=== PATIENT | male | born 1980 | race American Indian/Alaskan Native ===

== ENCOUNTER 2022-02-06 13:29 | Emergency (ER) | payer MEDICAID ==
[2022-02-06 15:01] LABS: BUN/Creatinine Ratio 12; Blood Urea Nitrogen 11 mg/dL (9-20); Calcium 9.8 mg/dL (8.4-10.2); Hemolysis Index 3
[2022-02-06 15:22] LABS: Basophils % (Auto) 0.8 % (0.0-1.8); Eosinophils # (Auto) 0.1 K/mm3 (0.0-0.4); Eosinophils % (Auto) 2.6 % (0.0-4.3); Hematocrit 43.7 % (35.5-45.6); Hemoglobin 14.8 gm/dl (11.8-15.2); Lymphocytes # (Auto) 1.9 K/mm3 (1.2-5.4); Mean Corpuscular HGB Conc 34 % (32-34); Mean Corpuscular Volume 85 fl (84-94); Monocytes # (Auto) 0.4 K/mm3 (0.0-0.8); Monocytes % (Auto) 8.9 % (0.0-7.3); Platelet Count 196 K/mm3 (140-440); Red Blood Count 5.16 M/mm3 (3.65-5.03); Red Cell Distribution Width 14.2 % (13.2-15.2)
--- NOTE | 2022-02-06 15:29 | Emergency Department Report ---
ED Psych HPI - General Chief Complaint: Psych Stated Complaint: MENTAL EVAL Time Seen by Provider: 02/06/22 13:42 Source: patient, EMS Mode of arrival: Ambulatory Limitations: No Limitations - History of Present Illness Initial Comments: PATIENT STATES HE IS HEARING VOICES AND THEY ARE TRYING TO PRACTICE WITCHCRAFT ON HIM. HISTORY OF SCHIZOPHRENIA AND BIPOLAR. HAS NOT TAKEN MEDICATION IN 1 MONTH MD Complaint: other (hallucination ) -: unknown Associated Psychiatric Symptoms: racing thoughts, auditory hallucinations, delusions History of same: Yes Quality: constant Improves With: none Worsens With: none If Self Harm: admits thoughts of - Related Data Allergies Allergy/AdvReac Type Severity Reaction Status Date / Time No Known Allergies Allergy Unverified 02/06/22 13:40 ED Review of Systems ROS: Stated complaint: MENTAL EVAL Other details as noted in HPI Constitutional: denies: chills, fever Eyes: denies: eye pain, eye discharge, vision change ENT: denies: ear pain, throat pain Respiratory: denies: cough, shortness of breath, wheezing Cardiovascular: denies: chest pain, palpitations Endocrine: no symptoms reported Gastrointestinal: denies: abdominal pain, nausea, diarrhea Genitourinary: denies: urgency, dysuria Musculoskeletal: denies: back pain, joint swelling, arthralgia Skin: denies: rash, lesions Neurological: denies: headache, weakness, paresthesias Psychiatric: denies: anxiety, depression Hematological/Lymphatic: denies: easy bleeding, easy bruising ED Past Medical Hx - Past Medical History Previous Medical History?: No Hx Hypertension: No ED Physical Exam - General Limitations: No Limitations General appearance: alert, anxious - Head Head exam: Present: atraumatic, normocephalic - Eye Eye exam: Present: normal appearance - ENT ENT exam: Present: mucous membranes moist - Neck Neck exam: Present: normal inspection - Respiratory Respiratory exam: Present: normal lung sounds bilaterally. Absent: respiratory distress - Cardiovascular Cardiovascular Exam: Present: regular rate, normal rhythm. Absent: systolic murmur, diastolic murmur, rubs, gallop - GI/Abdominal GI/Abdominal exam: Present: soft, normal bowel sounds - Rectal Rectal exam: Present: deferred - Extremities Exam Extremities exam: Present: normal inspection - Back Exam Back exam: Present: normal inspection - Neurological Exam Neurological exam: Present: alert, oriented X3 - Psychiatric Psychiatric exam: Present: normal affect, agitated, anxious - Skin Skin exam: Present: warm, dry, intact, normal color. Absent: rash ED Course Vital Signs 02/06/22 02/06/22 02/06/22 13:29 14:30 14:35 Temperature 98.1 F 98.6 F Pulse Rate 69 72 Respiratory 16 16 16 Rate Blood Pressure 151/88 154/79 [Left] O2 Sat by Pulse 99 100 100 Oximetry 02/07/22 02/07/22 13:37 15:50 Temperature 98.1 F Pulse Rate 82 Respiratory 16 16 Rate Blood Pressure 135/93 [Left] O2 Sat by Pulse 100 100 Oximetry ED Medical Decision Making - Lab Data Result diagrams: 02/06/22 14:27 02/06/22 14:27 Critical care attestation.: If time is entered above; I have spent that time in minutes in the direct care of this critically ill patient, excluding procedure time. ED Disposition Clinical Impression: Psychosis Disposition: 30 STILL A PATIENT Is pt being admited?: No Does the pt Need Aspirin: No Condition: Stable Referrals: PRIMARY CARE, [Primary Care Provider] - 3-5 Days
--- NOTE | 2022-02-07 07:08 | Event Note ---
Date: 02/07/22 Psych Obs Note S Pt is a 41yo M presenting with schizopherenia, bipolar disorder, p/w auditory hallucinations. He is calm, cooperative, He denies any complaints at this time. Chart reviewed. No overnight events reported O: VSS Pt is comfortable, well appearing, in no distress. He appears to be intermittently be responding to internal stimuli. He ambulates w/normal steady gait ; no focal neurological deficits A: 41yo M w/schizophrenia, bipolar disorder, p/w psychosis.Pt was seen/evaluated by Dr. Alves. 1013 form signed by him. P: Pt is awaiting formal evaluation by psychiatry. UDS pending
[2022-02-07 09:22] LABS: Amphetamine Screen,Urine Negative; Benzodiazepines Screen,Urine Negative; Cannabinoid Screen,Urine Negative; Cocaine Screen,Urine Negative; Methadone Screen,Urine Negative; Opiate Screen,Urine Negative
[2022-02-07 09:23] LABS: Hyaline Casts,Urine 1 /LPF; Mucus,Urine 1+ /HPF; RBC,Urine < 1.0 /HPF (0.0-6.0)
[2022-02-07 09:30] LABS: Color,Urine Yellow (Yellow)
--- NOTE | 2022-02-07 10:35 | Consultation ---
History of Present Illness - Reason for Consult Consult date: 02/07/22 Reason for consult: psychosis - History of Present Psychiatric Illness The patient was seen today. He is delusional. He appears to be responding to internal stimuli. I'm having to ask the patient the same questions several times. He says people are doing witchcraft around him. He says this has been going on about two weeks. The patient has his back turn. I ask him to turn around so I can see him. He is grinning at times. He says he takes Risperidone but has been off for about three weeks. He says he has a history of schizophrenia. 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 Previous psychiatric medications tried: risperidone Outpatient treatment: not currently PAST MEDICAL HISTORY: None reported Family Psychiatric History: None reported or documented SOCIAL HISTORY Marital Status: Living Arrangements: with family and friends Employment Status: Unemployed Access to guns/weapons: Denies Education: History of Abuse: No Legal History: Unknown REVIEW OF SYSTEMS Constitutional: Negative for weight loss ENT: Negative for stridor Respiratory: Negative for cough or hemoptysis All other systems reviewed and are negative MENTAL STATUS EXAMINATION General Appearance and Behavior: Age appropriate, good hygiene, wearing appropriate clothes, cooperative Cooperation: guarded Psychomotor Behavior: Normal Mood: depressed Affect and affective range:congruent Thought Process: circumstantial Thought Content: hallucinations, responding to internal stimuli Speech: Normal Intellectual Functioning: Average Suicidal Ideation: Denies Homicidal Ideation: Denies Hallucination: Auditory hallucinations Delusions: yes Impulse Control: Limited Insight and Judgment: limited insight and poor judgment Memory: Intact Attention:Attentive Orientation: Alert and oriented Diagnoses: (1) Schizophrenia Treatment Plan: 1013 Risperidone 0.5mg po BID Trazodone 50mg po qhs Patient should be compliant with medications and not to use drugs and not to drink alcohol. PSYCHOTHERAPY: Supportive psychotherapy provided MEDICAL: Per primary team DELIRIUM PRECAUTIONS: Please re-orient patient frequently, keep lights on during the day, and minimize benzodiazepines and opiates as these medications could worsen patient's confusion. REGISTERED OCCUPATIONAL THERAPIST: Per medical team DISPOSITION: recommend acute inpatient psychiatric hospitalization at this time. FOLLOW-UP: Will follow Thank you for the consult. Please contact with any questions and/or concerns. Case staffed with Dr. Jens Medications and Allergies Allergies Allergy/AdvReac Type Severity Reaction Status Date / Time No Known Allergies Allergy Unverified 02/06/22 13:40 Mental Status Exam - Vital signs Last Vital Signs Temp 98.6 F 02/06/22 14:35 Pulse 72 02/06/22 14:35 Resp 16 02/06/22 14:35 BP 154/79 02/06/22 14:35 Pulse Ox 100 02/06/22 14:35 Results Result Diagrams: 02/06/22 14:27 02/06/22 14:27 Abnormal lab results 02/06/22 02/06/22 02/06/22 Range/Units 14:27 14:27 14:27 RBC 5.16 H (3.65-5.03) M/mm3 Lymph % (Auto) 42.0 H (13.4-35.0) % [place] % (Auto) 8.9 H (0.0-7.3) % Salicylates < 0.3 L (2.8-20.0) mg/dL Acetaminophen 5.0 L (10.0-30.0) ug/mL All other labs normal.
[2022-02-07] MEDS: risperiDONE 0.25 MG TAB PO SCH ×2 (15:22→22:44)
[2022-02-07] MEDS ORDERED: traZODone 50 MG TAB PO SCH (22:00)
[2022-02-07] MEDS ORDERED: ACETAMINOPHEN 500 MG TAB PO ONE (22:34)
--- NOTE | 2022-02-08 07:30 | Event Note ---
Date: 02/08/22 S: No events reported overnight O: Vital Signs - 8 hr 02/08/22 04:49 Temperature 98.5 F Pulse Rate 78 Respiratory 18 Rate Blood Pressure 153/90 [Right] O2 Sat by Pulse 100 Oximetry E: Schizophrenia/COVID-positive P: Cleared by psych. Being discharged
--- NOTE | 2022-02-08 08:58 | Progress Note ---
Subjective - Reason for Consult Consult date: 02/08/22 Reason for consult: psychosis - Chief Complaint Chief complaint: The patient was seen today. He presents much better today. The patient is smiling and is conversational. He says he feels better and slept good last night. The patient did says he felt a little woozy. He is positive for COVID. He denies SI/HI or hallucinations. The patient says "I was hallucinating when I came in, but not doing that now." He says his plans are to get back to work and get his own place. 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 No longer recommend acute psychiatric inpatient treatment. The patient can now be managed on an outpatient basis. Please see plan below. REVIEW OF SYSTEMS Constitutional: Negative for weight loss ENT: Negative for stridor Respiratory: Negative for cough or hemoptysis All other systems reviewed and are negative MENTAL STATUS EXAMINATION General Appearance and Behavior: Age appropriate, good hygiene, wearing appropriate clothes, cooperative Cooperation: cooperative Psychomotor Behavior: Normal Mood: better Affect and affective range:congruent Thought Process: goal directed Thought Content: optimism Speech: Normal tone and pace Suicidal Ideation: Denies Homicidal Ideation: Denies Hallucination: Denies Delusions: None elicited Impulse Control: Limited Insight and Judgment: limited insight and poor judgment Memory: Intact Attention: Attentive Orientation: Alert and oriented Diagnoses: (1) Schizophrenia Treatment Plan: d/c 1013 Risperidone 0.5mg po BID Trazodone 50mg po qhs Patient should be compliant with medications and not to use drugs and not to drink alcohol. PSYCHOTHERAPY: Supportive psychotherapy provided MEDICAL: Per primary team DELIRIUM PRECAUTIONS: Please re-orient patient frequently, keep lights on during the day, and minimize benzodiazepines and opiates as these medications could worsen patient's confusion. LAMINATING MACHINE FEEDER: Per medical team DISPOSITION: Do not recommend acute inpatient psychiatric hospitalization at this time. The patient understands that if SI/HI or and fear of endangerment arise he is to seek immediate assistance. The music mixer to further discuss safety plan and give the patient all necessary resources The patient to follow up with outpatient psych in 7 to 14 days upon discharge FOLLOW-UP: Will sign off Thank you for the consult. Please contact with any questions and/or concerns. Case staffed with Dr. Colindres Mental Status Exam - Vital signs Last Vital Signs Temp 98.5 F 02/08/22 04:49 Pulse 78 02/08/22 04:49 Resp 18 02/08/22 04:49 BP 153/90 02/08/22 04:49 Pulse Ox 100 02/08/22 04:49
[2022-02-08 10:25] VITALS: BP 151/91
== END 2022-02-08 12:10 | disposition home or self-care (01) ==
LOC: ED 13:29 → EEVIPCON 13:29 → ED 02-08 12:10
DX: U07.1 COVID-19 (principal); F29 Unspecified psychosis not due to a substance or known physiological condition; Z79.899 Other long term (current) drug therapy
CPT/HCPCS: 36415; 80048; 80320; 85025; 99284; G0480

== ENCOUNTER 2022-02-10 14:41 | Emergency (ER) | payer MEDICAID ==
--- NOTE | 2022-02-10 23:17 | Emergency Department Report ---
HPI - General Chief Complaint: Psych PUI?: No Time Seen by Provider: 02/10/22 20:23 - HPI HPI: 41-year-old male with extensive psychiatric history, currently undomiciled per his report, presents for evaluation of suicidal ideation. However when asked patient states "I am here because I did not get my meds". When asked again concerning SI patient states that" when I think about my mother I get depressed." He does not initially volunteer being suicidal but when asked for the patient states "yeah I am suicidal." When asked concerning whether or not he has a plan, the patient will not answer stating "I just want to go to sleep." Pain 0 out of 10. ED Past Medical Hx - Past Medical History Hx Hypertension: No - Medications Home Medications: Home Medications Medication Instructions Recorded Confirmed Last Taken Type risperiDONE [RisperDAL] 0.5 mg PO BID #60 02/08/22 Unknown Rx traZODone [Desyrel] 50 mg PO QHS #30 tab 02/08/22 Unknown Rx ED Review of Systems ROS: Stated complaint: psych Other details as noted in HPI Comment: All other systems reviewed and negative Physical Exam - Physical Exam Vital Signs: Vital Signs 02/10/22 02/10/22 18:35 20:24 Temperature 98.1 F 97.3 F L Pulse Rate 79 54 L Respiratory 16 16 Rate Blood Pressure 129/75 [Left] Blood Pressure 127/89 [Right] O2 Sat by Pulse 97 100 Oximetry General: Gen: pt is well appearing, no acute distress HEENT: Normocephalic atraumatic pupils equally round and reactive to light extraocular muscles intact sclera anicteric Neck: Full range of motion, no midline spinal tenderness palpation, no JVD, no carotid bruits, no nuchal rigidity CVS: S1-S2 regular rate and rhythm with no gallops rubs or murmurs, chest wall nontender Pulmonary: Clear to auscultation bilaterally, no wheezes rales or rhonchi Abdomen: Soft nondistended nontender no guarding or rebound tenderness, no palpable deformities or step-offs, normal active bowel sounds, no hepatosplenomegaly, no pulsatile masses : Deferred Extremities: No cyanosis no clubbing no edema, intact distal peripheral pulses, Integumentary: Skin normal, no petechia no purpura no abscess no lacerations no evidence of trauma no evidence of infection Neuro: Patient is awake alert and oriented to person place time situation, mentating well, cranial nerves II through XII intact, no focal neurodeficits, sensation grossly tact Psych: Flat affect, uncooperative, poor eye contact with this provider ED Course Vital Signs 02/10/22 02/10/22 18:35 20:24 Temperature 98.1 F 97.3 F L Pulse Rate 79 54 L Respiratory 16 16 Rate Blood Pressure 129/75 [Left] Blood Pressure 127/89 [Right] O2 Sat by Pulse 97 100 Oximetry ED Medical Decision Making - Medical Decision Making 41-year-old male with extensive psychiatric history presents with complaints of depression and suicidal ideation. Vital stable. Patient was ordered for serum labs several hours ago but at the timing of the dictation of this note, the labs have not been drawn and the results have not been resulted. Therefore at this time patient cannot be medically cleared. 1013 form signed. Patient to remain in psychiatric holding area until he has both been medically cleared as well as undergone evaluation by mental health in the morning. Due to change in provider shift time at midnight, serum labs will be followed up by , overnight ER attending physician. The pt's case has been reviewed with him prior to the termination of this provider's shift time. Critical care attestation.: If time is entered above; I have spent that time in minutes in the direct care of this critically ill patient, excluding procedure time. ED Disposition Clinical Impression: Homelessness, Suicidal ideation Disposition: 30 STILL A PATIENT Is pt being admited?: No Does the pt Need Aspirin: No Condition: Stable Referrals: PRIMARY CARE, [Primary Care Provider] - 3-5 Days
[2022-02-11 00:02] LABS: Hemoglobin 14.5 gm/dl (11.8-15.2); Mean Corpuscular HGB Conc 34 % (32-34); Mean Corpuscular Volume 85 fl (84-94); Platelet Count 144 K/mm3 (140-440); Red Blood Count 5.07 M/mm3 (3.65-5.03); Red Cell Distribution Width 14.3 % (13.2-15.2)
[2022-02-11 00:12] LABS: Alanine Aminotransferase 9 units/L (7-56); Albumin 4.4 g/dL (3.9-5); BUN/Creatinine Ratio 21; Blood Urea Nitrogen 17 mg/dL (9-20); Calcium 8.8 mg/dL (8.4-10.2); Hemolysis Index 45
[2022-02-11 02:27] LABS: Basophils % (Manual) 0 % (0.0-1.8); Platelet Estimate Consistent w Auto; RBC Morphology Normal; Total Cells Counted 100
[2022-02-11 09:05] LABS: WBC,Urine < 1.0 /HPF (0.0-6.0)
[2022-02-11 09:12] LABS: Amphetamine Screen,Urine Negative; Benzodiazepines Screen,Urine Negative; Cannabinoid Screen,Urine Negative; Cocaine Screen,Urine Negative; Methadone Screen,Urine Negative; Opiate Screen,Urine Negative
[2022-02-11 10:06] LABS: Color,Urine Straw (Yellow); RBC,Urine < 1.0 /HPF (0.0-6.0)
[2022-02-11 10:15] VITALS: BP 164/62
--- NOTE | 2022-02-11 10:18 | Progress Note ---
Subjective - Reason for Consult Consult date: 02/11/22 Reason for consult: need meds - Chief Complaint Chief complaint: HPI: 41-year-old male with extensive psychiatric history, currently undomiciled per his report, presents for evaluation of suicidal ideation. However when asked patient states "I am here because I did not get my meds". When asked again concerning SI patient states that" when I think about my mother I get depressed." He does not initially volunteer being suicidal but when asked for the patient states "yeah I am suicidal." When asked concerning whether or not he has a plan, the patient will not answer stating "I just want to go to sleep." Pain 0 out of 10. The patient was seen today. He was treated in the ER and cleared by psych a couple of days ago. The patient's symptoms are vague. When asked what brought him back to the hospital, the patient says "my schizophrenia." He doesn't volunteer any other information concerning his symptoms until asked. I ask him what about his schizophrenia, he says "people are doing witchcraft." The patient then says "I got kicked out where I was living for having differences with my roommate." The patient never says he's suicidal until asked. He initially says "no, not really." He then says "yes, a little." The patient denies having a plan. He denies hallucinations of any kind. The patient appears to have returned to the ER for secondary gains. The patient can be managed on an outpatient basis. REVIEW OF SYSTEMS Constitutional: Negative for weight loss ENT: Negative for stridor Respiratory: Negative for cough or hemoptysis All other systems reviewed and are negative MENTAL STATUS EXAMINATION General Appearance and Behavior: Age appropriate, good hygiene, wearing appropriate clothes, cooperative Cooperation: cooperative Psychomotor Behavior: Normal Mood: better Affect and affective range:congruent Thought Process: goal directed Thought Content: optimism Speech: Normal tone and pace Suicidal Ideation: Denies Homicidal Ideation: Denies Hallucination: Denies Delusions: None elicited Impulse Control: Limited Insight and Judgment: limited insight and poor judgment Memory: Intact Attention: Attentive Orientation: Alert and oriented Diagnoses: (1) Schizophrenia Treatment Plan: d/c 1013 Continue meds previously prescribed PSYCHOTHERAPY: Supportive psychotherapy provided MEDICAL: Per primary team DELIRIUM PRECAUTIONS: Please re-orient patient frequently, keep lights on during the day, and minimize benzodiazepines and opiates as these medications could worsen patient's confusion. PHARMACOEPIDEMIOLOGIST: Per medical team DISPOSITION: Do not recommend acute inpatient psychiatric hospitalization at this time. The patient understands that if SI/HI or and fear of endangerment arise he is to seek immediate assistance. The medical administrative assistant to further discuss safety plan and give the patient all necessary resources The patient to follow up with outpatient psych in 7 to 14 days upon discharge FOLLOW-UP: Will sign off Thank you for the consult. Please contact with any questions and/or concerns. Case staffed with Dr. Colindres Mental Status Exam - Vital signs Last Vital Signs Temp 98.7 F 02/11/22 10:14 Pulse 52 L 02/11/22 10:14 Resp 16 02/10/22 20:24 BP 164/62 02/11/22 10:14 Pulse Ox 100 02/10/22 20:24
== END 2022-02-11 11:55 | disposition still patient (30) ==
LOC: EEVIPCON 14:41 → ED 14:41
DX: R45.851 Suicidal ideations (principal); Z59.00 Homelessness unspecified; Z79.899 Other long term (current) drug therapy
CPT/HCPCS: 36415; 80053; 80307; 80320; 81001; 85007; 85025; 99283; G0480

== ENCOUNTER 2022-02-12 15:34 | Emergency (ER) | payer MEDICAID ==
--- NOTE | 2022-02-12 19:38 | Emergency Department Report ---
ED Psych HPI - General Chief Complaint: Psych Stated Complaint: SUICIDAL Time Seen by Provider: 02/12/22 17:04 Source: patient Mode of arrival: Ambulatory - History of Present Illness Initial Comments: Patient is a 41-year-old male presenting to ED with complaint of suicidal ideation. States his SI was triggered by thinking of his mother. - Related Data Previous Rx's Medication Instructions Recorded Last Taken Type risperiDONE [RisperDAL] 0.5 mg PO BID #60 02/08/22 Unknown Rx traZODone [Desyrel] 50 mg PO QHS #30 tab 02/08/22 Unknown Rx Allergies Allergy/AdvReac Type Severity Reaction Status Date / Time aspirin Allergy Shortness Verified 02/12/22 16:22 of Breath ED Review of Systems ROS: Stated complaint: SUICIDAL Other details as noted in HPI Constitutional: denies: chills, fever Respiratory: denies: cough, shortness of breath, wheezing Cardiovascular: denies: chest pain, palpitations Gastrointestinal: denies: abdominal pain, nausea, diarrhea Genitourinary: denies: urgency, dysuria Musculoskeletal: denies: back pain, joint swelling, arthralgia Skin: denies: rash, lesions Neurological: denies: headache, weakness, paresthesias Psychiatric: suicidal thoughts. denies: anxiety, depression ED Past Medical Hx - Past Medical History Hx Hypertension: No Additional medical history: schizophrenia - Surgical History Past Surgical History?: No - Medications Home Medications: Home Medications Medication Instructions Recorded Confirmed Last Taken Type risperiDONE [RisperDAL] 0.5 mg PO BID #60 02/08/22 Unknown Rx traZODone [Desyrel] 50 mg PO QHS #30 tab 02/08/22 Unknown Rx ED Physical Exam - General Limitations: No Limitations General appearance: alert, in no apparent distress - Head Head exam: Present: atraumatic, normocephalic - Neck Neck exam: Present: normal inspection - Respiratory Respiratory exam: Present: normal lung sounds bilaterally. Absent: respiratory distress - Cardiovascular Cardiovascular Exam: Present: regular rate, normal rhythm, normal heart sounds - GI/Abdominal GI/Abdominal exam: Present: soft. Absent: distended, tenderness - Rectal Rectal exam: Present: deferred - Neurological Exam Neurological exam: Present: alert, oriented X3 - Psychiatric Psychiatric exam: Present: normal affect, suicidal ideation - Skin Skin exam: Present: warm, dry, intact, normal color ED Course Vital Signs 02/12/22 02/12/22 16:19 17:10 Temperature 98.4 F Pulse Rate 62 Respiratory 18 Rate Blood Pressure 108/79 [Left] O2 Sat by Pulse 99 99 Oximetry Critical care attestation.: If time is entered above; I have spent that time in minutes in the direct care of this critically ill patient, excluding procedure time. ED Disposition Condition: Stable Referrals: PRIMARY CARE, [Primary Care Provider] - 3-5 Days
[2022-02-12 19:40] LABS: Hematocrit 41.4 % (35.5-45.6); Mean Corpuscular HGB Conc 34 % (32-34); Mean Corpuscular Volume 84 fl (84-94); Platelet Count 172 K/mm3 (140-440); Red Blood Count 4.94 M/mm3 (3.65-5.03); Red Cell Distribution Width 14.1 % (13.2-15.2)
[2022-02-12 19:55] LABS: Alanine Aminotransferase 9 units/L (7-56); Albumin 4.5 g/dL (3.9-5); BUN/Creatinine Ratio 14; Blood Urea Nitrogen 11 mg/dL (9-20); Calcium 9.2 mg/dL (8.4-10.2); Hemolysis Index 17
[2022-02-12 20:50] LABS: Platelet Estimate Consistent w Auto; Total Cells Counted 100
--- NOTE | 2022-02-13 10:49 | Progress Note ---
Subjective - Reason for Consult Consult date: 02/13/22 Reason for consult: SI - Chief Complaint Chief complaint: The patient was seen today. He was seen two other times and cleared. The patient makes poor eye contact and doesn't talk much. He says he can't stop thinking of his mother. The patient says he is suicidal and "no longer wants to live any more." He also endorses hearing hallucination that he can't describe. REVIEW OF SYSTEMS Constitutional: Negative for weight loss ENT: Negative for stridor Respiratory: Negative for cough or hemoptysis All other systems reviewed and are negative MENTAL STATUS EXAMINATION General Appearance and Behavior: Age appropriate, good hygiene, wearing appropriate clothes, cooperative Cooperation: cooperative Psychomotor Behavior: Normal Mood: better Affect and affective range:congruent Thought Process: goal directed Thought Content: optimism Speech: Normal tone and pace Suicidal Ideation: Denies Homicidal Ideation: Denies Hallucination: Denies Delusions: None elicited Impulse Control: Limited Insight and Judgment: limited insight and poor judgment Memory: Intact Attention: Attentive Orientation: Alert and oriented Diagnoses: (1) Schizophrenia Treatment Plan: Risperidon 0.5mg po BID Trazodone 50mg po qhs PSYCHOTHERAPY: Supportive psychotherapy provided MEDICAL: Per primary team DELIRIUM PRECAUTIONS: Please re-orient patient frequently, keep lights on during the day, and minimize benzodiazepines and opiates as these medications could worsen patient's confusion. IT PROJECT MANAGER: Per medical team DISPOSITION: recommend acute inpatient psychiatric hospitalization at this time. FOLLOW-UP: Will follow Thank you for the consult. Please contact with any questions and/or concerns. Case staffed with Dr. Colindres Mental Status Exam - Vital signs Last Vital Signs Temp 97.7 F 02/13/22 08:31 Pulse 82 02/13/22 08:31 Resp 18 02/13/22 08:31 BP 106/74 02/13/22 08:31 Pulse Ox 100 02/13/22 08:32
[2022-02-13] MEDS ORDERED: NON-FORMULARY EACH (Risperidone [Risperdal] 0.5 MG Tablet) PO SCH (11:00)
[2022-02-13 12:21] LABS: Amorphous Crystals,Urine Few; Amphetamine Screen,Urine Negative; Benzodiazepines Screen,Urine Negative; Cocaine Screen,Urine Negative; Methadone Screen,Urine Negative; Opiate Screen,Urine Negative
[2022-02-13 12:24] LABS: Color,Urine Straw (Yellow)
[2022-02-13 13:22] LABS: Cannabinoid Screen,Urine Positive
[2022-02-13] MEDS: risperiDONE 0.25 MG TAB PO SCH (22:54)
[2022-02-13] MEDS: traZODone 50 MG TAB PO SCH (22:56)
--- NOTE | 2022-02-14 11:11 | Progress Note ---
Subjective - Reason for Consult Consult date: 02/14/22 Reason for consult: suicidal ideation - Chief Complaint Chief complaint: The patient was seen today. He continues to endorse suicidal ideation however he has no plan. REVIEW OF SYSTEMS Constitutional: Negative for weight loss ENT: Negative for stridor Respiratory: Negative for cough or hemoptysis All other systems reviewed and are negative MENTAL STATUS EXAMINATION General Appearance and Behavior: Age appropriate, good hygiene, wearing appropriate clothes, cooperative Cooperation: cooperative Psychomotor Behavior: Normal Mood: Depressed Affect and affective range:congruent to states affect Thought Process: goal directed Thought Content: suicidal Speech: Normal tone and pace Suicidal Ideation: Yes Homicidal Ideation: Denies Hallucination: Denies Delusions: None elicited Impulse Control: Limited Insight and Judgment: limited insight and poor judgment Memory: Intact Attention: Attentive Orientation: Alert and oriented Diagnoses: (1) Schizophrenia Treatment Plan: 1013 Risperidon 0.5mg po BID Trazodone 50mg po qhs PSYCHOTHERAPY: Supportive psychotherapy provided MEDICAL: Per primary team DELIRIUM PRECAUTIONS: Please re-orient patient frequently, keep lights on during the day, and minimize benzodiazepines and opiates as these medications could worsen patient's confusion. CAKE INSPECTOR: Per medical team DISPOSITION: recommend acute inpatient psychiatric hospitalization at this time. FOLLOW-UP: Will follow Thank you for the consult. Please contact with any questions and/or concerns. Case staffed with Dr. Colindres Mental Status Exam - Vital signs Last Vital Signs Temp 97.7 F 02/13/22 08:31 Pulse 82 02/13/22 08:31 Resp 18 02/13/22 08:31 BP 106/74 02/13/22 08:31 Pulse Ox 100 02/13/22 08:32
[2022-02-14] MEDS: risperiDONE 0.25 MG TAB PO SCH ×2 (11:33→21:40)
--- NOTE | 2022-02-14 14:04 | Event Note ---
Date: 02/14/22 Pt seen today with no new symptoms except suicidal ideation. He was also round upon by the psychiatry team and continue to suggest inpatient treatment. Pt is to continue current medication. No other modifying or associated factors reported.
[2022-02-14] MEDS: traZODone 50 MG TAB PO SCH (21:40)
[2022-02-15 09:16] VITALS: BP 130/74
--- NOTE | 2022-02-15 09:46 | Progress Note ---
Subjective - Reason for Consult Consult date: 02/15/22 Reason for consult: suicidal ideation - Chief Complaint Chief complaint: The patient was seen today. He reports feeling better. The patient denies any current suicidal/homicidal ideation and denies hallucinations. REVIEW OF SYSTEMS Constitutional: Negative for weight loss ENT: Negative for stridor Respiratory: Negative for cough or hemoptysis All other systems reviewed and are negative MENTAL STATUS EXAMINATION General Appearance and Behavior: Age appropriate, good hygiene, wearing appropriate clothes, cooperative Cooperation: cooperative Psychomotor Behavior: Normal Mood: calm Affect and affective range:congruent to states affect Thought Process: goal directed Thought Content: reality oriented Speech: Normal tone and pace Suicidal Ideation: Denies Homicidal Ideation: Denies Hallucination: Denies Delusions: None elicited Impulse Control: Limited Insight and Judgment: limited insight and judgment Memory: Intact Attention: Attentive Orientation: Alert and oriented Diagnoses: (1) Schizophrenia Treatment Plan: DC 1013 Risperidon 0.5mg po BID Trazodone 50mg po qhs PSYCHOTHERAPY: Supportive psychotherapy provided MEDICAL: Per primary team DELIRIUM PRECAUTIONS: Please re-orient patient frequently, keep lights on during the day, and minimize benzodiazepines and opiates as these medications could worsen patient's confusion. ELECTRONICS SPECIALIST: Per medical team DISPOSITION: Do not recommend acute inpatient psychiatric hospitalization at this time. Landfill Grader will provide patient with psychiatric outpatient resources. FOLLOW-UP: Will sign off Thank you for the consult. Please contact with any questions and/or concerns. Case staffed with Dr. Colindres Mental Status Exam - Vital signs Last Vital Signs Temp 97.7 F 02/15/22 09:13 Pulse 69 02/15/22 09:13 Resp 18 02/15/22 09:13 BP 130/74 02/15/22 09:13 Pulse Ox 100 02/15/22 09:13
[2022-02-15] MEDS: risperiDONE 0.25 MG TAB PO SCH (11:31)
== END 2022-02-15 14:01 | disposition home or self-care (01) ==
LOC: ED 15:34 → EEVIPCON 15:34 → ED 02-15 14:01
DX: U07.1 COVID-19 (principal); R45.851 Suicidal ideations; Z88.6 Allergy status to analgesic agent; Z79.899 Other long term (current) drug therapy
CPT/HCPCS: 36415; 80053; 80307; 80320; 81001; 84443; 85007; 85025; 99284; G0480; U0003

== ENCOUNTER 2022-02-16 03:12 | Emergency (ER) | payer MEDICAID ==
[2022-02-16 05:12] LABS: Hematocrit 44.8 % (35.5-45.6); Hemoglobin 15.1 gm/dl (11.8-15.2); Mean Corpuscular HGB Conc 34 % (32-34); Mean Corpuscular Volume 84 fl (84-94); Platelet Count 215 K/mm3 (140-440); Red Blood Count 5.34 M/mm3 (3.65-5.03)
[2022-02-16 05:24] LABS: BUN/Creatinine Ratio 14; Blood Urea Nitrogen 13 mg/dL (9-20); Calcium 9.8 mg/dL (8.4-10.2); Hemolysis Index 25
[2022-02-16 06:20] LABS: Anisocytosis 1+; Basophils % (Manual) 0 % (0.0-1.8); Platelet Estimate Consistent w Auto; Total Cells Counted 100
[2022-02-16 08:58] LABS: Amphetamine Screen,Urine Negative; Benzodiazepines Screen,Urine Negative; Cocaine Screen,Urine Negative; Methadone Screen,Urine Negative; Opiate Screen,Urine Negative
[2022-02-16 09:08] LABS: Color,Urine Yellow (Yellow)
[2022-02-16 09:17] LABS: Cannabinoid Screen,Urine Positive
[2022-02-16 10:11] LABS: Hyaline Casts,Urine 1 /LPF; Mucus,Urine FEW /HPF
[2022-02-16 15:07] VITALS: BP 144/76
== END 2022-02-16 15:09 | disposition left against medical advice (07) ==
LOC: ED 03:12
DX: Z13.30 Encounter for screening examination for mental health and behavioral disorders, unspecified (principal); Z53.21 Procedure and treatment not carried out due to patient leaving prior to being seen by health care provider; Z79.899 Other long term (current) drug therapy
CPT/HCPCS: 36415; 80048; 80307; 80320; 81001; 85007; 85025; G0480

== ENCOUNTER 2022-02-17 18:12 | Emergency (ER) | payer MEDICAID ==
--- NOTE | 2022-02-18 15:54 | Emergency Department Report ---
HPI - General Chief Complaint: Psych - HPI HPI: Room 3 Patient is a 41-year-old male present with chief complaint of hallucinations. Patient states she has a history of schizophrenia and has not had any of his psychiatric medications for approximately 1 week. Patient admits to auditory visual hallucinations. Patient states the voices are saying "a lot of negative things, then good again, then negative again." Patient states his visual hallucinations include seeing "horns and evil spirits.". Patient denies suicidal homicidal ideation ED Past Medical Hx - Past Medical History Hx Psychiatric Treatment: Yes (SCHIZOPHRENIC (DX AGE 24)) Additional medical history: schizophrenia - Surgical History Additional Surgical History: Right lower extremity repair - Family History Family history: no significant - Social History Smoking Status: Current Every Day Smoker (1/7 pack/day) Substance Use Type: None (Denies illicit drug use), Alcohol (Occasional) - Medications Home Medications: Home Medications Medication Instructions Recorded Confirmed Last Taken Type risperiDONE [RisperDAL] 0.5 mg PO BID #60 02/08/22 Unknown Rx traZODone [Desyrel] 50 mg PO QHS #30 tab 02/08/22 Unknown Rx risperiDONE [RisperDAL] 0.5 mg PO BID 30 Days #60 02/15/22 Unknown Rx traZODone [Desyrel] 50 mg PO QHS 30 Days #30 tab 02/15/22 Unknown Rx risperiDONE [RisperDAL] 0.5 mg PO BID 30 Days #60 02/20/22 Unknown Rx traZODone [Desyrel] 50 mg PO QHS 30 Days #30 tab 02/20/22 Unknown Rx ED Review of Systems ROS: Stated complaint: SI Other details as noted in HPI Constitutional: no symptoms reported Eyes: denies: eye pain ENT: denies: throat pain Respiratory: no symptoms reported Cardiovascular: denies: chest pain Endocrine: no symptoms reported Gastrointestinal: denies: abdominal pain Genitourinary: denies: dysuria Musculoskeletal: denies: back pain Neurological: denies: headache Psychiatric: auditory hallucinations, visual hallucinations. denies: homicidal thoughts, suicidal thoughts Physical Exam - Physical Exam Vital Signs: Vital Signs 02/17/22 02/18/22 19:14 08:22 Temperature 98.4 F 97.8 F Pulse Rate 86 68 Respiratory 15 16 Rate Blood Pressure 142/63 122/84 [Right] O2 Sat by Pulse 96 100 Oximetry Physical Exam: GENERAL: The patient is well-developed well-nourished male lying on stretcher not appearing to be in acute distress. [] HEENT: Normocephalic. Atraumatic. Extraocular motions are intact. Patient has moist mucous membranes. NECK: Supple. Trachea midline CHEST/LUNGS: Clear to auscultation. There is no respiratory distress noted. HEART/CARDIOVASCULAR: Regular. There is no tachycardia. There is no gallop rub or murmur. ABDOMEN: Abdomen is soft, nontender. Patient has normal bowel sounds. There is no abdominal distention. SKIN: There is no rash. There is no edema. There is no diaphoresis. NEURO: The patient is awake, alert, and oriented. The patient is cooperative. The patient has no focal neurologic deficits. The patient has normal speech. GCS 15 MUSCULOSKELETAL: There is no evidence of acute injury. ED Course Vital Signs 02/17/22 02/18/22 19:14 08:22 Temperature 98.4 F 97.8 F Pulse Rate 86 68 Respiratory 15 16 Rate Blood Pressure 142/63 122/84 [Right] O2 Sat by Pulse 96 100 Oximetry ED Medical Decision Making - Lab Data Result diagrams: 02/18/22 16:28 02/18/22 16:28 Laboratory Tests 02/18/22 02/18/22 02/18/22 16:28 16:28 16:28 WBC 5.0 RBC 5.79 H Hgb 15.9 H Hct 49.4 H MCV 85 MCH 27 L MCHC 32 RDW 14.1 Plt Count 252 Lymph % (Auto) 40.7 H [place] % (Auto) 9.4 H Eos % (Auto) 2.6 Baso % (Auto) 0.7 Lymph # (Auto) 2.0 [place] # (Auto) 0.5 Eos # (Auto) 0.1 Baso # (Auto) 0.0 Seg Neutrophils % 46.6 Seg Neutrophils # 2.3 Sodium 137 Potassium 4.5 Chloride 97.5 L Carbon Dioxide 24 Anion Gap 20 BUN 15 Creatinine 1.0 Estimated GFR > 60 BUN/Creatinine Ratio 15 Glucose 59 L Calcium 10.5 H Total Bilirubin 0.90 AST 14 ALT 11 Alkaline Phosphatase 73 Total Protein 7.4 Albumin 5.3 H Albumin/Globulin Ratio 2.5 Salicylates < 0.3 L Acetaminophen Plasma/Serum Alcohol 02/18/22 02/18/22 16:28 16:28 WBC RBC Hgb Hct MCV MCH MCHC RDW Plt Count Lymph % (Auto) [place] % (Auto) Eos % (Auto) Baso % (Auto) Lymph # (Auto) [place] # (Auto) Eos # (Auto) Baso # (Auto) Seg Neutrophils % Seg Neutrophils # Sodium Potassium Chloride Carbon Dioxide Anion Gap BUN Creatinine Estimated GFR BUN/Creatinine Ratio Glucose Calcium Total Bilirubin AST ALT Alkaline Phosphatase Total Protein Albumin Albumin/Globulin Ratio Salicylates Acetaminophen 5.0 L Plasma/Serum Alcohol < 0.01 - Differential Diagnosis Schizophrenia Critical care attestation.: If time is entered above; I have spent that time in minutes in the direct care of this critically ill patient, excluding procedure time. ED Disposition Clinical Impression: Schizophrenia Disposition: 01 HOME / SELF CARE / HOMELESS Is pt being admited?: No Does the pt Need Aspirin: No Condition: Stable Instructions: Schizophrenia Additional Instructions: Take the medication as prescribed. Follow-up with your doctor or doctor/clinic provided. Return if symptoms worsen as indicated by your discharge instructions. Professional and Agency Contacts To help [facility] (05/01) [place] Crisis Line: Suicide Prevention Line: Crisis Text Line: Text ``START to 757303 Emergency: 911 Outpatient COMMUNITY Behavioral Health Resources: [place]: [facility] [address], [place] [address] [facility] [address] [place] [address] Thursday thru Thursday - 8am - 5pm Call to schedule an assessment for mental health and substance abuse programs [place]: [facility] Address: [address] [place] [address] Thursday thru Thursday- 7am-2pm [facility] Address: [address] [place] [address] Thursday thrthursday: 8:30AM-5PM OUTPATIENT MENTAL HEALTH RESOURCES [facility], [facility] Chayo Cam MD: [address] [place] [address], [address] [place] [address] [place] [address] [facility]: [facility] [address] [place] [address] [place] [address] [phone] [facility]: [facility] Healthcare: [address] [facility] [place] [address] [facility] [address] [facility]: Ridge Jay MD: [address] [facility] [address] [facility] [address] [facility]: [address] [place], [place] [id number] [phone] [place] CRISIS AND ACCESS LINE: Prescriptions: traZODone [Desyrel] 50 mg PO QHS 30 Days #30 tab risperiDONE [RisperDAL] 0.5 mg PO BID 30 Days #60 Referrals: [facility] [Provider Group] - 3-5 Days PRIMARY CARE, [Primary Care Provider] - 3-5 Days Time of Disposition: 23:45 (Awaiting eval)
[2022-02-18] MEDS ORDERED: NON-FORMULARY EACH (Risperidone [Risperdal] 0.5 MG Tablet) PO SCH (16:00)
[2022-02-18 17:23] LABS: Basophils % (Auto) 0.7 % (0.0-1.8); Eosinophils # (Auto) 0.1 K/mm3 (0.0-0.4); Eosinophils % (Auto) 2.6 % (0.0-4.3); Hematocrit 49.4 % (35.5-45.6); Hemoglobin 15.9 gm/dl (11.8-15.2); Lymphocytes % (Auto) 40.7 % (13.4-35.0); Mean Corpuscular HGB Conc 32 % (32-34); Mean Corpuscular Volume 85 fl (84-94); Monocytes # (Auto) 0.5 K/mm3 (0.0-0.8); Monocytes % (Auto) 9.4 % (0.0-7.3); Platelet Count 252 K/mm3 (140-440); Red Blood Count 5.79 M/mm3 (3.65-5.03); Red Cell Distribution Width 14.1 % (13.2-15.2)
[2022-02-18 17:36] LABS: Alanine Aminotransferase 11 units/L (7-56); Albumin 5.3 g/dL (3.9-5); BUN/Creatinine Ratio 15; Blood Urea Nitrogen 15 mg/dL (9-20); Calcium 10.5 mg/dL (8.4-10.2); Hemolysis Index 32
[2022-02-18] MEDS ORDERED: traZODone 50 MG TAB PO SCH (22:00)
--- NOTE | 2022-02-19 11:52 | Consultation ---
History of Present Illness - Reason for Consult Consult date: 02/19/22 Reason for consult: mental health evaluation - History of Present Psychiatric Illness ED Note: Patient is a 41-year-old male present with chief complaint of hallucinations. Patient states she has a history of schizophrenia and has not had any of his psychiatric medications for approximately 1 week. Patient admits to auditory visual hallucinations. Patient states the voices are saying "a lot of negative things, then good again, then negative again." Patient states his visual hallucinations include seeing "horns and evil spirits.". Patient denies suicidal homicidal ideation. The patient is a 42 year old male with history of schizophrenia who presents to the ED with hallucinations. The patient was seen today. he is calm, alert and oriented x3. He reports ongoing depression and auditory hallucinations for the past 2 weeks. He states he is noncompliant with psychotropic meds. He endorses suicidal ideation without a plan " I don't know." and auditory hallucinations " why did she have to leave." He reports feeling guilty over the of his mother. PAST PSYCHIATRIC HISTORY: Diagnoses: schizophrenia Suicide attempts or Self-harm behavior: Yes Prior psychiatric hospitalizations: Yes Substance Abuse history: Alcohol Previous psychiatric medications tried: Risperidone Outpatient treatment: No PAST MEDICAL HISTORY: Family Psychiatric History: None reported SOCIAL HISTORY Marital Status: Living Arrangements: Lives in a person half-way Employment Status:Unemployed Access to guns/weapons: Denies Education:some 12th grade History of Abuse: Denies Legal History: Unknown REVIEW OF SYSTEMS Constitutional: Negative for weight loss ENT: Negative for stridor Respiratory: Negative for cough or hemoptysis All other systems reviewed and are negative MENTAL STATUS General Appearance and Behavior: age appropriate, good eye contact, cooperative, Cooperation: Cooperative Psychomotor Behavior: within normal limits Mood: Depressed Affect and affective range: Congruent with stated mood Thought Process: goal directed Thought Content: suicidal/hallucinations Speech: Normal volume and Regular rate and rhythm Suicidal Ideation: Yes Homicidal Ideation: Denies HI Hallucinations: Auditory Impulse Control: intact Insight and Judgment: Limited Memory: Normal Attention: attentive Orientation: alert and oriented x3 Assessment Treatment Plan 1013 Continue home medications Risperidone 0.5mg po BID Trazodone 50mg po QHS The patient is to get first dose of meds prior to leaving. Benefits and possible SE were explained to patient. She verbalizes understanding. Risks, benefits and alternatives of medications discussed with the patient, questions answered and consent obtained from patient. PSYCHOTHERAPY: Supportive psychotherapy provided MEDICAL: Per primary team DELIRIUM PRECAUTIONS: Please re-orient patient frequently, keep lights on during the day, and minimize benzodiazepines and opiates as these medications could worsen patient's confusion. BOSOM PRESSER: Defer to primary DISPOSITION: Recommend acute inpatient psychiatric hospitalization at this time. FOLLOW-UP: Will follow Thank you for the consult. Please contact with any questions and/or concerns Case discussed with Dr. Colindres who agrees with current disposition Medications and Allergies Medications and Allergies Allergies Allergy/AdvReac Type Severity Reaction Status Date / Time aspirin Allergy Shortness Verified 02/12/22 16:22 of Breath Home Medications Medication Instructions Recorded Confirmed Last Taken Type risperiDONE [RisperDAL] 0.5 mg PO BID #60 02/08/22 Unknown Rx traZODone [Desyrel] 50 mg PO QHS #30 tab 02/08/22 Unknown Rx risperiDONE [RisperDAL] 0.5 mg PO BID 30 Days #60 02/15/22 Unknown Rx traZODone [Desyrel] 50 mg PO QHS 30 Days #30 tab 02/15/22 Unknown Rx Active Meds: Active Medications Risperidone (Risperidone 0.25 Mg Tab) 0.5 mg PO BID LILLI Trazodone HCl (Trazodone 50 Mg Tab) 50 mg PO QHS [facility] Mental Status Exam - Vital signs Last Vital Signs Temp 97.8 F 02/18/22 08:22 Pulse 68 02/18/22 08:22 Resp 16 02/18/22 08:22 BP 122/84 02/18/22 08:22 Pulse Ox 100 02/18/22 08:22 Results Result Diagrams: 02/18/22 16:28 02/18/22 16:28 Abnormal lab results 02/18/22 02/18/22 02/18/22 Range/Units 16:28 16:28 16:28 RBC 5.79 H (3.65-5.03) M/mm3 Hgb 15.9 H (11.8-15.2) gm/dl Hct 49.4 H (35.5-45.6) % MCH 27 L (28-32) pg Lymph % (Auto) 40.7 H (13.4-35.0) % [place] % (Auto) 9.4 H (0.0-7.3) % Chloride 97.5 L (98-107) mmol/L Glucose 59 L (75-100) mg/dL Calcium 10.5 H (8.4-10.2) mg/dL Albumin 5.3 H (3.9-5) g/dL Salicylates < 0.3 L (2.8-20.0) mg/dL Acetaminophen (10.0-30.0) ug/mL 02/18/22 Range/Units 16:28 RBC (3.65-5.03) M/mm3 Hgb (11.8-15.2) gm/dl Hct (35.5-45.6) % MCH (28-32) pg Lymph % (Auto) (13.4-35.0) % [place] % (Auto) (0.0-7.3) % Chloride (98-107) mmol/L Glucose (75-100) mg/dL Calcium (8.4-10.2) mg/dL Albumin (3.9-5) g/dL Salicylates (2.8-20.0) mg/dL Acetaminophen 5.0 L (10.0-30.0) ug/mL All other labs normal.
[2022-02-19 13:38] LABS: Amphetamine Screen,Urine Negative; Benzodiazepines Screen,Urine Negative; Cannabinoid Screen,Urine Negative; Cocaine Screen,Urine Negative; Methadone Screen,Urine Negative; Opiate Screen,Urine Negative
[2022-02-19 14:16] LABS: Mucus,Urine FEW /HPF
[2022-02-19 14:49] LABS: Color,Urine Yellow (Yellow)
[2022-02-19 14:50] LABS: RBC,Urine < 1.0 /HPF (0.0-6.0)
[2022-02-19] MEDS: risperiDONE 0.25 MG TAB PO SCH (23:56)
[2022-02-20 08:53] VITALS: BP 100/74
[2022-02-20] MEDS: risperiDONE 0.25 MG TAB PO SCH (10:07)
--- NOTE | 2022-02-20 10:12 | Progress Note ---
Subjective - Reason for Consult Consult date: 02/20/22 Reason for consult: mental health evaluation - Chief Complaint Chief complaint: The patient was seen today. The patient states he feels better. Patient reports good sleep, good appetite. Patient denies SI HI AVH. REVIEW OF SYSTEMS Constitutional: Negative for weight loss ENT: Negative for stridor Respiratory: Negative for cough or hemoptysis All other systems reviewed and are negative MENTAL STATUS General Appearance and Behavior: age appropriate, good eye contact, cooperative, Cooperation: Cooperative Psychomotor Behavior: within normal limits Mood: Depressed Affect and affective range: Congruent with stated mood Thought Process: goal directed Thought Content: reality oriented Speech: Normal volume and Regular rate and rhythm Suicidal Ideation: Denies Homicidal Ideation: Denies HI Hallucinations: Denies Impulse Control: intact Insight and Judgment: Normal Memory: Normal Attention: attentive Orientation: alert and oriented x3 Assessment Treatment Plan d/c 1013 Continue home medications Risperidone 0.5mg po BID Trazodone 50mg po QHS The patient is to get first dose of meds prior to leaving. Benefits and possible SE were explained to patient. She verbalizes understanding. Risks, benefits and alternatives of medications discussed with the patient, questions answered and consent obtained from patient. PSYCHOTHERAPY: Supportive psychotherapy provided MEDICAL: Per primary team DELIRIUM PRECAUTIONS: Please re-orient patient frequently, keep lights on during the day, and minimize benzodiazepines and opiates as these medications could worsen patient's confusion. CUFF STITCHER: Defer to primary DISPOSITION: Do not recommend acute inpatient psychiatric hospitalization at this time. Pile Driving Nozzleman will provide patient with psychiatric outpatient resources. FOLLOW-UP: Will sign-off. Thank you for the consult. Please contact with any questions and/or concerns Case discussed with Dr. Colindres who agrees with current disposition Medications and Allergies Mental Status Exam - Vital signs Last Vital Signs Temp 98.1 F 02/20/22 08:52 Pulse 80 02/20/22 08:52 Resp 16 02/19/22 16:43 BP 100/74 02/20/22 08:52 Pulse Ox 100 02/20/22 08:52
--- NOTE | 2022-02-20 12:34 | Emergency Department Report ---
Blank Doc - Documentation Documentation: 41-year-old mal here male psych patient. Chart reviewed. Patient was seen by mental health nurse practitioner and apparently patient does not meet 1013 criteria denies suicidal ideation, homicidal ideation, or hallucinations. Patient will be discharged as per mental health recommendation
== END 2022-02-20 12:59 | disposition home or self-care (01) ==
LOC: EEVIPCON 18:12 → ED 18:12
DX: F20.9 Schizophrenia, unspecified (principal); Z20.822 Contact with and (suspected) exposure to COVID-19; F17.210 Nicotine dependence, cigarettes, uncomplicated; Z72.89 Other problems related to lifestyle; Z79.899 Other long term (current) drug therapy; Z88.6 Allergy status to analgesic agent
CPT/HCPCS: 36415; 80053; 80307; 81001; 85025; 99283; U0003; 80320; G0480

== ENCOUNTER 2022-02-21 07:26 | Emergency (ER) | payer MEDICAID ==
[2022-02-21 08:17] VITALS: BP 127/84
== END 2022-02-22 07:10 | disposition left against medical advice (07) ==
LOC: ED 07:26
DX: R44.0 Auditory hallucinations (principal); Z53.21 Procedure and treatment not carried out due to patient leaving prior to being seen by health care provider

== ENCOUNTER 2022-02-22 00:06 | Emergency (ER) | payer MEDICAID ==
--- NOTE | 2022-02-22 04:36 | Emergency Department Report ---
ED Psych HPI - General Chief Complaint: Psych Stated Complaint: TEVIN ALVAREZ HAS RECENT VISIT Time Seen by Provider: 02/22/22 01:05 Source: patient Mode of arrival: Stretcher Limitations: No Limitations - History of Present Illness Initial Comments: Reporting that she has been off psych meds for a while because he cannot afford them. Denies SI nor HI. Complaint: other -: unknown Associated Psychiatric Symptoms: racing thoughts, auditory hallucinations History of same: Yes Quality: intermittent Worsens With: none Context: not taking psychiatric Treatments Prior to Arrival: none - Related Data Previous Rx's Medication Instructions Recorded Last Taken Type risperiDONE [RisperDAL] 0.5 mg PO BID #60 02/08/22 Unknown Rx traZODone [Desyrel] 50 mg PO QHS #30 tab 02/08/22 Unknown Rx risperiDONE [RisperDAL] 0.5 mg PO BID 30 Days #60 02/15/22 Unknown Rx traZODone [Desyrel] 50 mg PO QHS 30 Days #30 tab 02/15/22 Unknown Rx risperiDONE [RisperDAL] 0.5 mg PO BID 30 Days #60 02/20/22 Unknown Rx traZODone [Desyrel] 50 mg PO QHS 30 Days #30 tab 02/20/22 Unknown Rx Allergies Allergy/AdvReac Type Severity Reaction Status Date / Time aspirin Allergy Shortness Verified 02/22/22 10:29 of Breath ED Review of Systems ROS: Stated complaint: TEVIN ALVAREZ HAS RECENT VISIT Other details as noted in HPI Constitutional: denies: chills, fever Eyes: denies: eye pain, eye discharge, vision change ENT: denies: ear pain, throat pain Respiratory: denies: cough, shortness of breath, wheezing Cardiovascular: denies: chest pain, palpitations Endocrine: no symptoms reported Gastrointestinal: denies: abdominal pain, nausea, diarrhea Genitourinary: denies: urgency, dysuria Musculoskeletal: denies: back pain, joint swelling, arthralgia Skin: denies: rash, lesions Neurological: denies: headache, weakness, paresthesias Psychiatric: denies: anxiety, depression Hematological/Lymphatic: denies: easy bleeding, easy bruising ED Past Medical Hx - Past Medical History Previous Medical History?: Yes Hx Psychiatric Treatment: Yes (SCHIZOPHRENIC (DX AGE 24)) Additional medical history: schizophrenia - Surgical History Past Surgical History?: Yes Additional Surgical History: Right lower extremity repair - Social History Smoking Status: Current Every Day Smoker Substance Use Type: None - Medications Home Medications: Home Medications Medication Instructions Recorded Confirmed Last Taken Type risperiDONE [RisperDAL] 0.5 mg PO BID #60 02/08/22 Unknown Rx traZODone [Desyrel] 50 mg PO QHS #30 tab 02/08/22 Unknown Rx risperiDONE [RisperDAL] 0.5 mg PO BID 30 Days #60 02/15/22 Unknown Rx traZODone [Desyrel] 50 mg PO QHS 30 Days #30 tab 02/15/22 Unknown Rx risperiDONE [RisperDAL] 0.5 mg PO BID 30 Days #60 02/20/22 Unknown Rx traZODone [Desyrel] 50 mg PO QHS 30 Days #30 tab 02/20/22 Unknown Rx ED Physical Exam - General Limitations: No Limitations General appearance: alert, anxious - Head Head exam: Present: atraumatic, normocephalic - Eye Eye exam: Present: normal appearance - ENT ENT exam: Present: mucous membranes moist - Neck Neck exam: Present: normal inspection - Respiratory Respiratory exam: Present: normal lung sounds bilaterally. Absent: respiratory distress - Cardiovascular Cardiovascular Exam: Present: regular rate, normal rhythm. Absent: systolic murmur, diastolic murmur, rubs, gallop - GI/Abdominal GI/Abdominal exam: Present: soft, normal bowel sounds - Rectal Rectal exam: Present: deferred - Extremities Exam Extremities exam: Present: normal inspection - Back Exam Back exam: Present: normal inspection - Neurological Exam Neurological exam: Present: alert, oriented X3 - Psychiatric Psychiatric exam: Present: anxious - Expanded Psychiatric Exam Expanded Focused psych exam: Present: restlessness - Skin Skin exam: Present: warm, dry, intact, normal color. Absent: rash ED Course Vital Signs 02/22/22 02/22/22 02/22/22 00:07 01:06 10:09 Temperature 98 F 98.6 F 98.1 F Pulse Rate 90 61 63 Respiratory 18 18 18 Rate Blood Pressure 120/80 Blood Pressure 127/70 111/75 [Left] O2 Sat by Pulse 100 99 100 Oximetry 02/22/22 10:10 Temperature Pulse Rate Respiratory Rate Blood Pressure Blood Pressure [Left] O2 Sat by Pulse 100 Oximetry Critical care attestation.: If time is entered above; I have spent that time in minutes in the direct care of this critically ill patient, excluding procedure time. ED Disposition Clinical Impression: Psychosis Disposition: 01 HOME / SELF CARE / HOMELESS Is pt being admited?: No Does the pt Need Aspirin: No Condition: Stable Additional Instructions: OUTPATIENT MENTAL HEALTH RESOURCES [facility], [facility] Chayo Cam MD: [address] [place] [address] [place] [address] [facility] [address] [place] [address] [place] [address] [phone] [facility]: [facility]: [address] [place] [address] [facility] [address] [facility]: Ridge Jay MD: [address] [facility] [id number] [facility]: [address] [place], [place] [id number] [phone] [place] CRISIS AND ACCESS LINE: HOMELESS RESOURCES: [facility] NEED HELP? If you are in need of help or know someone who does, please contact us at [email or web address] call , or come to our offices at [address] [place] [address], Thursday-Thursday beginning 9:30 AM-1:30 PM -Support services help people with getting identification and legal documents -Homeless verification letter -Facesheet (if needed) [facility] Males only Admission at 7am Thu to Thu Address: [address] [place] [address] Client Engagement [phone] Regular program admission occurs Thursday through Thursday at 7:00 amand operates on a first come, first serve basis.Because we cant anticipate program availability in advance andprogram spots are in high demand, we recommend ar riving early. Space fills up fast! Next steps can include: Assignment to a [facility] program bed Connection to and placement in a partner program, or Referral to a partner agency [facility] [place] [facility] Admission at 4:30pm daily Address: [place] [address] [facility] Services Admission from 8am to 10am Daily Address: [address] [place] [address] Referrals: PATRICIO ALATORRE MD [Primary Care Provider] - 3-5 Days
[2022-02-22 10:10] VITALS: BP 111/75
--- NOTE | 2022-02-22 10:14 | Progress Note ---
Subjective - Reason for Consult Consult date: 02/22/22 Reason for consult: hearing things, no meds - Chief Complaint Chief complaint: The patient was seen today. He was just seen and cleared a few days ago. He appears to be here due to housing situation or lack of housing. The patient initially says he's good when asked. He then says he started hearing things. The patient denies the hallucinations feeling harmful or threatening. He says "I didn't get my medicine." I ask him why, he says he couldn't afford it. The patient says he slept in the lunch room of [facility]. He says they told him to come back when he got his housing straight. The patient says he's been looking for a halfway. He also says his women's health care nurse practitioner is no longer the payee of his SSI and medicaid. He says his aunt is about to take over as soon as she comes back to town. REVIEW OF SYSTEMS Constitutional: Negative for weight loss ENT: Negative for stridor Respiratory: Negative for cough or hemoptysis All other systems reviewed and are negative MENTAL STATUS General Appearance and Behavior: age appropriate, good eye contact, cooperative, Cooperation: Cooperative Psychomotor Behavior: within normal limits Mood: Good Affect and affective range: Congruent with stated mood Thought Process: goal directed Thought Content: reality oriented Speech: Normal volume and Regular rate and rhythm Suicidal Ideation: Denies Homicidal Ideation: Denies Hallucinations: Yes Impulse Control: intact Insight and Judgment: Normal Memory: Normal Attention: attentive Orientation: alert and oriented x3 Assessment Hx of Schizophrenia Treatment Plan d/c 1013 Give dose of Risperidone now, prior to discharge Continue home medications: Risperidone 0.5mg po BID Trazodone 50mg po QHS The patient is to get first dose of meds prior to leaving. Benefits and possible SE were explained to patient. She verbalizes understanding. Risks, benefits and alternatives of medications discussed with the patient, questions answered and consent obtained from patient. PSYCHOTHERAPY: Supportive psychotherapy provided MEDICAL: Per primary team DELIRIUM PRECAUTIONS: Please re-orient patient frequently, keep lights on during the day, and minimize benzodiazepines and opiates as these medications could worsen patient's confusion. 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 Director [employer] [facility] [employer] will provide patient with psychiatric outpatient resources. FOLLOW-UP: Will sign-off. Director [employer] [facility] to give the patient halfway resources and transportation pass, and all necessary outpatient resources. Please give the patient resources that can also help pay for meds. He is to follow up with outpatient psych in 7 to 14 days Thank you for the consult. Please contact with any questions and/or concerns Case discussed with Dr. Colindres who agrees with current disposition Mental Status Exam - Vital signs Last Vital Signs Temp 98.6 F 02/22/22 01:06 Pulse 61 02/22/22 01:06 Resp 18 02/22/22 01:06 BP 127/70 02/22/22 01:06 Pulse Ox 99 02/22/22 01:06
[2022-02-22] MEDS ORDERED: risperiDONE 0.25 MG TAB PO SCH (11:00)
--- NOTE | 2022-02-22 11:23 | Event Note ---
Date: 02/22/22 Patient evaluated this morning and is stable for discharge with outpatient treatment.
== END 2022-02-22 12:05 | disposition home or self-care (01) ==
LOC: ED 00:06
DX: F29 Unspecified psychosis not due to a substance or known physiological condition (principal); F20.9 Schizophrenia, unspecified; F17.200 Nicotine dependence, unspecified, uncomplicated; Z98.890 Other specified postprocedural states; Z88.6 Allergy status to analgesic agent; Z79.899 Other long term (current) drug therapy
CPT/HCPCS: 99284

== ENCOUNTER 2022-02-22 23:34 | Emergency (ER) | payer MEDICAID ==
--- NOTE | 2022-02-23 00:31 | Emergency Department Report ---
HPI - General Chief Complaint: Psych Time Seen by Provider: 02/23/22 00:23 - HPI HPI: Room 16 The patient is a 41-year-old male present with a chief complaint of auditory visual hallucinations. Patient has a history of schizophrenia and states for 1 day he is auditory hallucinations and visual hallucinations. Patient states his auditory hallucinations consist of people laughing at him and trying to kill him. Patient states his visual hallucinations include things such as seeing the devil/Satan. Patient denies suicidal homicidal ideation ED Past Medical Hx - Past Medical History Hx Psychiatric Treatment: Yes (Schizophrenia (DX AGE 24)) Additional medical history: schizophrenia - Surgical History Additional Surgical History: Right lower extremity repair - Family History Family history: no significant - Social History Smoking Status: Current Every Day Smoker (1/7 pack/day) Substance Use Type: None (Denies illicit drug use) - Medications Home Medications: Home Medications Medication Instructions Recorded Confirmed Last Taken Type risperiDONE [RisperDAL] 0.5 mg PO BID #60 02/08/22 Unknown Rx traZODone [Desyrel] 50 mg PO QHS #30 tab 02/08/22 Unknown Rx risperiDONE [RisperDAL] 0.5 mg PO BID 30 Days #60 02/15/22 Unknown Rx traZODone [Desyrel] 50 mg PO QHS 30 Days #30 tab 02/15/22 Unknown Rx risperiDONE [RisperDAL] 0.5 mg PO BID 30 Days #60 02/20/22 Unknown Rx traZODone [Desyrel] 50 mg PO QHS 30 Days #30 tab 02/20/22 Unknown Rx ED Review of Systems ROS: Stated complaint: MH EVAL/HEARING VOICES Other details as noted in HPI Constitutional: no symptoms reported Eyes: denies: eye pain ENT: denies: throat pain Respiratory: no symptoms reported Cardiovascular: denies: chest pain Endocrine: no symptoms reported Gastrointestinal: denies: abdominal pain Genitourinary: denies: dysuria Musculoskeletal: denies: back pain Neurological: denies: headache Psychiatric: auditory hallucinations, visual hallucinations. denies: homicidal thoughts, suicidal thoughts Physical Exam - Physical Exam Vital Signs: Vital Signs 02/23/22 00:14 Temperature 98.0 F Pulse Rate 64 Respiratory 18 Rate Blood Pressure 132/91 O2 Sat by Pulse 100 Oximetry Physical Exam: GENERAL: The patient is well-developed well-nourished male lying on chair not appearing to be in acute distress. [] HEENT: Normocephalic. Atraumatic. Extraocular motions are intact. Patient has moist mucous membranes. NECK: Supple. Trachea midline CHEST/LUNGS: Clear to auscultation. There is no respiratory distress noted. HEART/CARDIOVASCULAR: Regular. There is no tachycardia. There is no gallop rub or murmur. ABDOMEN: Abdomen is soft, nontender. Patient has normal bowel sounds. There is no abdominal distention. SKIN: There is no rash. There is no edema. There is no diaphoresis. NEURO: The patient is awake, alert, and oriented. The patient is cooperative. The patient has no focal neurologic deficits. The patient has normal speech and gait. GCS 15 MUSCULOSKELETAL: There is no evidence of acute injury. ED Course Vital Signs 02/23/22 00:14 Temperature 98.0 F Pulse Rate 64 Respiratory 18 Rate Blood Pressure 132/91 O2 Sat by Pulse 100 Oximetry ED Medical Decision Making - Lab Data Result diagrams: 02/23/22 00:34 02/23/22 00:34 Laboratory Tests 02/23/22 02/23/22 02/23/22 00:34 00:34 00:34 WBC 5.6 RBC 5.34 H Hgb 14.7 Hct 45.2 MCV 85 MCH 28 MCHC 33 RDW 14.6 Plt Count 262 Lymph % (Auto) 48.8 H Keith % (Auto) 9.1 H Eos % (Auto) 3.3 Baso % (Auto) 1.0 Lymph # (Auto) 2.7 Keith # (Auto) 0.5 Eos # (Auto) 0.2 Baso # (Auto) 0.1 Seg Neutrophils % 37.8 L Seg Neutrophils # 2.1 Sodium 138 Potassium 4.4 Chloride 103.2 Carbon Dioxide 23 Anion Gap 16 BUN 10 Creatinine 0.9 Estimated GFR > 60 BUN/Creatinine Ratio 11 Glucose 84 Calcium 9.8 Salicylates < 0.3 L Acetaminophen Plasma/Serum Alcohol 02/23/22 02/23/22 00:34 00:34 WBC RBC Hgb Hct MCV MCH MCHC RDW Plt Count Lymph % (Auto) Keith % (Auto) Eos % (Auto) Baso % (Auto) Lymph # (Auto) Keith # (Auto) Eos # (Auto) Baso # (Auto) Seg Neutrophils % Seg Neutrophils # Sodium Potassium Chloride Carbon Dioxide Anion Gap BUN Creatinine Estimated GFR BUN/Creatinine Ratio Glucose Calcium Salicylates Acetaminophen 5.0 L Plasma/Serum Alcohol < 0.01 - Differential Diagnosis Schizophrenia Critical care attestation.: If time is entered above; I have spent that time in minutes in the direct care of this critically ill patient, excluding procedure time. ED Disposition Clinical Impression: Schizophrenia, Auditory hallucinations, Visual hallucinations Disposition: 30 STILL A PATIENT Is pt being admited?: No Does the pt Need Aspirin: No Condition: Stable Time of Disposition: 04:05 (Awaiting ivana)
[2022-02-23 00:53] LABS: Basophils # (Auto) 0.1 K/mm3 (0.0-0.1); Eosinophils # (Auto) 0.2 K/mm3 (0.0-0.4); Eosinophils % (Auto) 3.3 % (0.0-4.3); Hematocrit 45.2 % (35.5-45.6); Hemoglobin 14.7 gm/dl (11.8-15.2); Lymphocytes # (Auto) 2.7 K/mm3 (1.2-5.4); Lymphocytes % (Auto) 48.8 % (13.4-35.0); Mean Corpuscular HGB Conc 33 % (32-34); Mean Corpuscular Volume 85 fl (84-94); Monocytes # (Auto) 0.5 K/mm3 (0.0-0.8); Monocytes % (Auto) 9.1 % (0.0-7.3); Platelet Count 262 K/mm3 (140-440); Red Blood Count 5.34 M/mm3 (3.65-5.03); Red Cell Distribution Width 14.6 % (13.2-15.2)
[2022-02-23 01:12] LABS: BUN/Creatinine Ratio 11; Blood Urea Nitrogen 10 mg/dL (9-20); Calcium 9.8 mg/dL (8.4-10.2); Hemolysis Index 15
[2022-02-23 07:36] VITALS: BP 113/58
--- NOTE | 2022-02-23 09:12 | Progress Note ---
Subjective - Reason for Consult Consult date: 02/23/22 Reason for consult: mental health eval - Chief Complaint Chief complaint: The patient was seen today. He was also seen and treated yesterday with first does of his medications. He had not filled his scripts prior, because he said he couldn't afford to. The patient says he came back because he says he is trying to get to a group home. He says "I'm trying to get to the group home as soon as possible." He yesterday "I didn't have transportation there." The patient says he is trying to get to [facility], but states they are not excepting people for another week. He denies SI/HI or hallucinations. Please provide the patient with transportation pass. Will clear him from psych. REVIEW OF SYSTEMS Constitutional: Negative for weight loss ENT: Negative for stridor Respiratory: Negative for cough or hemoptysis All other systems reviewed and are negative MENTAL STATUS General Appearance and Behavior: age appropriate, good eye contact, cooperative, Cooperation: Cooperative Psychomotor Behavior: within normal limits Mood: Good Affect and affective range: Congruent with stated mood Thought Process: goal directed Thought Content: reality oriented Speech: Normal volume and Regular rate and rhythm Suicidal Ideation: Denies Homicidal Ideation: Denies Hallucinations: Yes Impulse Control: intact Insight and Judgment: Normal Memory: Normal Attention: attentive Orientation: alert and oriented x3 Assessment Hx of Schizophrenia Treatment Plan Continue home medications: Risperidone 0.5mg po BID Trazodone 50mg po QHS The patient is to get first dose of meds prior to leaving. Benefits and possible SE were explained to patient. She verbalizes understanding. Risks, benefits and alternatives of medications discussed with the patient, questions answered and consent obtained from patient. PSYCHOTHERAPY: Supportive psychotherapy provided MEDICAL: Per primary team DELIRIUM PRECAUTIONS: Please re-orient patient frequently, keep lights on during the day, and minimize benzodiazepines and opiates as these medications could worsen patient's confusion. VEGETABLE FARM WORKER: Defer to primary DISPOSITION: Do not recommend acute inpatient psychiatric hospitalization at this time. Logging Contractor will provide patient with psychiatric outpatient resources. FOLLOW-UP: Will sign-off. Logging Contractor to give the patient group home resources and transportation pass, and all necessary outpatient resources. Please give the patient resources that can also help pay for meds. He is to follow up with outpatient psych in 7 to 14 days Thank you for the consult. Please contact with any questions and/or concerns Case discussed with Dr. Colindres who agrees with current disposition Mental Status Exam - Vital signs Last Vital Signs Temp 97.6 F 02/23/22 07:35 Pulse 65 02/23/22 07:35 Resp 18 02/23/22 07:35 BP 113/58 02/23/22 07:35 Pulse Ox 100 02/23/22 07:36
--- NOTE | 2022-02-23 10:25 | Event Note ---
Date: 02/23/22 Patient evaluated and determined stable for discharge and outpatient treatment.
== END 2022-02-23 10:40 | disposition still patient (30) ==
LOC: ED 23:34
DX: F20.9 Schizophrenia, unspecified (principal); F17.200 Nicotine dependence, unspecified, uncomplicated
CPT/HCPCS: 36415; 80048; 80320; 85025; 99283; 99284; G0480

== ENCOUNTER 2022-02-25 09:37 | Emergency (ER) | payer MEDICAID ==
--- NOTE | 2022-02-25 10:39 | Emergency Department Report ---
ED General Adult HPI - General Chief complaint: Psych Stated complaint: SUICIDAL SCZHEPRENIC BIPOLOR PUI?: No Time Seen by Provider: 02/25/22 10:21 Source: patient Mode of arrival: Ambulatory Limitations: No Limitations - History of Present Illness Initial comments: 41-year-old male came in today with concerns of suicide ideation. According patient he had a plan today to jump in front of traffic which patient endorsed medical history of schizophrenia and also bipolar. According patient he is not taking any medication but he does not have the money for. Patient said that the voices that he hears are telling him to kill himself. Patient denies visual or tactile hallucination. Patient denies any other discomfort. Patient he has done this in the past as well. Patient denies access to weapons at home. Patient denies fever chill night sweat dizziness blurred vision lightheadedness headache tinnitus ear pain runny nose sore throat loss of taste loss smell chest pain palpitation short of breath cough abdominal pain nausea vomiting diarrhea constipation joint pain muscle pain new rash and heat or cold intolerance. Severity scale (0 -10): 0 - Related Data Previous Rx's Medication Instructions Recorded Last Taken Type risperiDONE [RisperDAL] 0.5 mg PO BID #60 02/08/22 Unknown Rx traZODone [Desyrel] 50 mg PO QHS #30 tab 02/08/22 Unknown Rx risperiDONE [RisperDAL] 0.5 mg PO BID 30 Days #60 02/15/22 Unknown Rx traZODone [Desyrel] 50 mg PO QHS 30 Days #30 tab 02/15/22 Unknown Rx risperiDONE [RisperDAL] 0.5 mg PO BID 30 Days #60 02/20/22 Unknown Rx traZODone [Desyrel] 50 mg PO QHS 30 Days #30 tab 02/20/22 Unknown Rx Allergies Allergy/AdvReac Type Severity Reaction Status Date / Time aspirin Allergy Shortness Verified 02/25/22 09:46 of Breath ED Review of Systems ROS: Stated complaint: SUICIDAL SCZHEPRENIC BIPOLOR Other details as noted in HPI Comment: All other systems reviewed and negative Constitutional: no symptoms reported, see HPI Eyes: as per HPI ENT: as per HPI Respiratory: no symptoms reported, see HPI Cardiovascular: as per HPI Endocrine: no symptoms reported, see HPI Gastrointestinal: as per HPI Genitourinary: as per HPI Musculoskeletal: as per HPI Skin: as per HPI Neurological: as per HPI Psychiatric: auditory hallucinations, suicidal thoughts. denies: anxiety, depression, visual hallucinations, homicidal thoughts Hematological/Lymphatic: as per HPI ED Past Medical Hx - Past Medical History Previous Medical History?: Yes Hx Psychiatric Treatment: Yes (Schizophrenia (DX AGE 24)) Additional medical history: schizophrenia - Surgical History Additional Surgical History: Right lower extremity repair - Social History Smoking Status: Current Every Day Smoker Substance Use Type: None - Medications Home Medications: Home Medications Medication Instructions Recorded Confirmed Last Taken Type risperiDONE [RisperDAL] 0.5 mg PO BID #60 02/08/22 Unknown Rx traZODone [Desyrel] 50 mg PO QHS #30 tab 02/08/22 Unknown Rx risperiDONE [RisperDAL] 0.5 mg PO BID 30 Days #60 02/15/22 Unknown Rx traZODone [Desyrel] 50 mg PO QHS 30 Days #30 tab 02/15/22 Unknown Rx risperiDONE [RisperDAL] 0.5 mg PO BID 30 Days #60 02/20/22 Unknown Rx traZODone [Desyrel] 50 mg PO QHS 30 Days #30 tab 02/20/22 Unknown Rx ED Physical Exam - General Limitations: No Limitations General appearance: alert, in no apparent distress - Head Head exam: Present: atraumatic, normocephalic, normal inspection - Eye Eye exam: Present: normal appearance, PERRL, EOMI Pupils: Present: normal accommodation - ENT ENT exam: Present: normal exam, mucous membranes moist - Neck Neck exam: Present: normal inspection, full ROM - Respiratory Respiratory exam: Present: normal lung sounds bilaterally - Cardiovascular Cardiovascular Exam: Present: regular rate, normal rhythm, normal heart sounds - GI/Abdominal GI/Abdominal exam: Present: soft - Extremities Exam Extremities exam: Present: normal inspection, full ROM, normal capillary refill - Back Exam Back exam: Present: normal inspection, full ROM - Neurological Exam Neurological exam: Present: alert, oriented X3, CN II-XII intact - Psychiatric Psychiatric exam: Present: flat affect, suicidal ideation. Absent: depressed, agitated, anxious, manic, homicidal ideation - Skin Skin exam: Present: warm, normal color ED Course Vital Signs 02/25/22 09:46 Temperature 98.1 F Pulse Rate 85 Respiratory 16 Rate Blood Pressure 121/75 [Right] O2 Sat by Pulse 98 Oximetry ED Medical Decision Making - Lab Data Result diagrams: 02/25/22 10:51 02/25/22 10:51 Critical care attestation.: If time is entered above; I have spent that time in minutes in the direct care of this critically ill patient, excluding procedure time. ED Disposition Clinical Impression: Suicidal ideations, Medical non-compliance Condition: Stable
[2022-02-25 11:32] LABS: Hemoglobin 14.6 gm/dl (11.8-15.2); Mean Corpuscular HGB Conc 34 % (32-34); Mean Corpuscular Volume 83 fl (84-94); Platelet Count 226 K/mm3 (140-440); Red Blood Count 5.16 M/mm3 (3.65-5.03); Red Cell Distribution Width 14.2 % (13.2-15.2)
[2022-02-25 11:51] LABS: Alanine Aminotransferase 8 units/L (7-56); Albumin 4.6 g/dL (3.9-5); BUN/Creatinine Ratio 15; Blood Urea Nitrogen 17 mg/dL (9-20); Calcium 9.3 mg/dL (8.4-10.2); Hemolysis Index 9
--- NOTE | 2022-02-25 12:16 | Progress Note ---
Subjective - Reason for Consult Consult date: 02/25/22 Reason for consult: SI, hallucinations - Chief Complaint Chief complaint: The patient was seen today. He was seen the other day by psych. The patient says he came back this time because he doesn't know what else to day. The patient appears to be responding to internal stimuli. He's observed mumbling and answering himself. When I ask the patient who was he talking to, he says "nobody." The patient says he is very depressed, stressed, and hopeless. He says he has limited help since his mom passed. He says he's suicidal, and keeps repeating it. He says "I need help or I'm gone hurt myself." The patient says his aunt is trying to be his payee. The patient says he can't manage things without a payee. He says he can't get his medication and hasn't been taking them, because he needs his aunt's or somebody's help. The patient is later observed holding a conversation with people not there. REVIEW OF SYSTEMS Constitutional: Negative for weight loss ENT: Negative for stridor Respiratory: Negative for cough or hemoptysis All other systems reviewed and are negative MENTAL STATUS General Appearance and Behavior: age appropriate, good eye contact, cooperative, Cooperation: Cooperative Psychomotor Behavior: within normal limits Mood: depressed, stressed Affect and affective range: Congruent with stated mood Thought Process: responding to internal stimuli Thought Content: hallucinations, hopelessness, helplessness Speech: Normal volume and Regular rate and rhythm Suicidal Ideation: SI Homicidal Ideation: Denies Hallucinations: Yes Impulse Control: intact Insight and Judgment: Normal Memory: Normal Attention: attentive Orientation: alert and oriented x3 Assessment Schizophrenia Treatment Plan 1013 Case management consult Prozac 20mg po daily Risperidone 0.5mg po BID Trazodone 50mg po qhs PSYCHOTHERAPY: Supportive psychotherapy provided MEDICAL: Per primary team DELIRIUM PRECAUTIONS: Please re-orient patient frequently, keep lights on during the day, and minimize benzodiazepines and opiates as these medications could worsen patient's confusion. ENVIRONMENTAL HEALTH SANITARIAN: Defer to primary DISPOSITION: recommend acute inpatient psychiatric hospitalization at this time. Will follow. Thanks Thank you for the consult. Please contact with any questions and/or concerns Case discussed with Dr. Colindres who agrees with current disposition Mental Status Exam - Vital signs Last Vital Signs Temp 98.1 F 02/25/22 09:46 Pulse 85 02/25/22 09:46 Resp 16 02/25/22 09:46 BP 121/75 02/25/22 09:46 Pulse Ox 98 02/25/22 09:46
[2022-02-25] MEDS ORDERED: NON-FORMULARY EACH (Risperidone [Risperdal] 0.5 MG Tablet) PO SCH (12:30)
[2022-02-25] MEDS: FLUoxetine 20 MG CAP PO SCH (14:30)
[2022-02-25] MEDS: hydrOXYzine PAMOATE 25 MG CAP PO SCH ×2 (14:30→22:20)
[2022-02-25] MEDS: risperiDONE 0.25 MG TAB PO SCH (22:20)
[2022-02-25] MEDS: traZODone 50 MG TAB PO SCH (22:21)
[2022-02-26 10:32] VITALS: BP 95/59
[2022-02-26] MEDS: FLUoxetine 20 MG CAP PO SCH (10:44)
[2022-02-26] MEDS: risperiDONE 0.25 MG TAB PO SCH (10:44)
[2022-02-26] MEDS: hydrOXYzine PAMOATE 25 MG CAP PO SCH (10:44)
[2022-02-26 12:30] LABS: Mucus,Urine FEW /HPF; WBC,Urine < 1.0 /HPF (0.0-6.0)
--- NOTE | 2022-02-26 12:40 | Progress Note ---
Subjective - Reason for Consult Consult date: 02/26/22 Reason for consult: SI, hallucinations - Chief Complaint Chief complaint: The patient was seen today. He endorses being very depressed. The patient says "my mind is not right." He endorses feeling suicidal. The patient is observed mumbling to himself. I ask him what the voices are saying, he says "that I'm no good and kill myself." REVIEW OF SYSTEMS Constitutional: Negative for weight loss ENT: Negative for stridor Respiratory: Negative for cough or hemoptysis All other systems reviewed and are negative MENTAL STATUS General Appearance and Behavior: age appropriate, good eye contact, cooperative, Cooperation: Cooperative Psychomotor Behavior: within normal limits Mood: depressed, stressed Affect and affective range: Congruent with stated mood Thought Process: responding to internal stimuli Thought Content: hallucinations, hopelessness, helplessness Speech: Normal volume and Regular rate and rhythm Suicidal Ideation: SI Homicidal Ideation: Denies Hallucinations: Yes Impulse Control: intact Insight and Judgment: Normal Memory: Normal Attention: attentive Orientation: alert and oriented x3 Assessment Schizophrenia Treatment Plan 1013 Case management consult Increase Prozac 40mg po daily Risperidone 1mg po BID Trazodone 50mg po qhs PSYCHOTHERAPY: Supportive psychotherapy provided MEDICAL: Per primary team DELIRIUM PRECAUTIONS: Please re-orient patient frequently, keep lights on during the day, and minimize benzodiazepines and opiates as these medications could worsen patient's confusion. FURNACE BUILDER: Defer to primary DISPOSITION: recommend acute inpatient psychiatric hospitalization at this time. Will follow. Thanks Thank you for the consult. Please contact with any questions and/or concerns Case discussed with Dr. Colindres who agrees with current disposition Mental Status Exam - Vital signs Last Vital Signs Temp 97.7 F 02/26/22 10:28 Pulse 54 L 02/26/22 10:28 Resp 14 02/26/22 10:28 BP 95/59 02/26/22 10:28 Pulse Ox 100 02/26/22 10:28
[2022-02-26 12:47] LABS: Color,Urine Yellow (Yellow)
[2022-02-26] MEDS ORDERED: FLUoxetine 20 MG CAP PO SCH (13:00)
[2022-02-26 13:38] LABS: Amphetamine Screen,Urine Negative; Benzodiazepines Screen,Urine Negative; Cannabinoid Screen,Urine Negative; Cocaine Screen,Urine Negative; Methadone Screen,Urine Negative; Opiate Screen,Urine Negative
[2022-02-26 13:47] LABS: RBC,Urine > 182.0 /HPF (0.0-6.0)
[2022-02-26] MEDS ORDERED: risperiDONE 1 MG TAB PO SCH (22:00)
--- NOTE | 2022-02-27 08:14 | Progress Note ---
Subjective - Reason for Consult Consult date: 02/27/22 Reason for consult: SI, hallucinations - Chief Complaint Chief complaint: The patient was seen today. He is sleeping. He arouses with light tactile stimuli. He drifts back off at times. The patient still endorses suicidal thoughts. He endorses feeling helpless. The patient denies having a plan. He states he hears voices telling him "a lot of negative stuff." REVIEW OF SYSTEMS Constitutional: Negative for weight loss ENT: Negative for stridor Respiratory: Negative for cough or hemoptysis All other systems reviewed and are negative MENTAL STATUS General Appearance and Behavior: age appropriate, good eye contact, cooperative, Cooperation: Cooperative Psychomotor Behavior: within normal limits Mood: depressed, stressed Affect and affective range: Congruent with stated mood Thought Process: responding to internal stimuli Thought Content: hallucinations, hopelessness, helplessness Speech: Normal volume and Regular rate and rhythm Suicidal Ideation: SI Homicidal Ideation: Denies Hallucinations: Yes Impulse Control: intact Insight and Judgment: Normal Memory: Normal Attention: attentive Orientation: alert and oriented x3 Assessment Schizophrenia Treatment Plan 1013 Case management consult Prozac 40mg po daily Risperidone 1.5mg po BID Trazodone 50mg po qhs PSYCHOTHERAPY: Supportive psychotherapy provided MEDICAL: Per primary team DELIRIUM PRECAUTIONS: Please re-orient patient frequently, keep lights on during the day, and minimize benzodiazepines and opiates as these medications could worsen patient's confusion. RESERVATION MANAGER: Defer to primary DISPOSITION: recommend acute inpatient psychiatric hospitalization at this time. Will follow. Thanks Thank you for the consult. Please contact with any questions and/or concerns Case discussed with Dr. Colindres who agrees with current disposition Mental Status Exam - Vital signs Last Vital Signs Temp 97.7 F 02/26/22 10:28 Pulse 54 L 02/26/22 10:28 Resp 14 02/26/22 10:28 BP 95/59 02/26/22 10:28 Pulse Ox 100 02/26/22 10:28
[2022-02-27] MEDS ORDERED: risperiDONE 1 MG TAB PO SCH (10:00)
[2022-02-27] MEDS ORDERED: FLUoxetine 20 MG CAP PO SCH (10:00)
--- NOTE | 2022-02-27 11:57 | Event Note ---
Date: 02/27/22 Patient is seen and evaluated this morning observed sleeping and denied any acute issue overnight. Patient is also seen by psychiatric team and recommend to continue 1013 and inpatient psych treatment.
[2022-02-27] MEDS: traZODone 50 MG TAB PO SCH (21:49)
[2022-02-27] MEDS: hydrOXYzine PAMOATE 25 MG CAP PO SCH (21:50)
== END 2022-02-27 23:05 ==
LOC: ED 09:37
DX: R45.851 Suicidal ideations (principal); Z20.822 Contact with and (suspected) exposure to COVID-19; Z91.19 Patient's noncompliance with other medical treatment and regimen; F20.9 Schizophrenia, unspecified; F17.200 Nicotine dependence, unspecified, uncomplicated; Z79.899 Other long term (current) drug therapy; Z88.8 Allergy status to other drugs, medicaments and biological substances
CPT/HCPCS: 36415; 80053; 80307; 81001; 84443; 85027; 99285; U0003; 80320; G0480

== ENCOUNTER 2022-03-04 15:37 | Emergency (ER) | payer MEDICAID ==
--- NOTE | 2022-03-04 21:45 | Emergency Department Report ---
ED Psych HPI - General Chief Complaint: Medical Clearance Stated Complaint: PSYCH Time Seen by Provider: 03/04/22 20:59 Source: patient Mode of arrival: Ambulatory - History of Present Illness Initial Comments: 41-year-old male with past medical history of schizophrenia states has been out of his Risperdal and Seroquel for about the last for 5 days and has began experiencing auditory and visual hallucinations telling him to doing many different things but not acknowledging suicidal homicidal ideation. Reports no headache, no chest pain, no shortness of breath, no fever, chills, sweats. No nausea vomiting -: Gradual Associated Psychiatric Symptoms: none History of same: No Improves With: none Worsens With: none Associated Symptoms: denies other symptoms Treatments Prior to Arrival: none - Related Data Previous Rx's Medication Instructions Recorded Last Taken Type risperiDONE [RisperDAL] 0.5 mg PO BID #60 02/08/22 Unknown Rx traZODone [Desyrel] 50 mg PO QHS #30 tab 02/08/22 Unknown Rx risperiDONE [RisperDAL] 0.5 mg PO BID 30 Days #60 02/15/22 Unknown Rx traZODone [Desyrel] 50 mg PO QHS 30 Days #30 tab 02/15/22 Unknown Rx risperiDONE [RisperDAL] 0.5 mg PO BID 30 Days #60 02/20/22 Unknown Rx traZODone [Desyrel] 50 mg PO QHS 30 Days #30 tab 02/20/22 Unknown Rx risperiDONE [RisperDAL] 1 mg PO BID 30 Days #60 tab 03/05/22 Unknown Rx Allergies Allergy/AdvReac Type Severity Reaction Status Date / Time aspirin Allergy Shortness Verified 03/07/22 08:08 of Breath ED Review of Systems ROS: Stated complaint: PSYCH Other details as noted in HPI Comment: All other systems reviewed and negative ED Past Medical Hx - Past Medical History Hx Psychiatric Treatment: Yes (Schizophrenia (DX AGE 24)) Additional medical history: schizophrenia - Surgical History Additional Surgical History: Right lower extremity repair - Social History Smoking Status: Current Every Day Smoker Substance Use Type: None - Medications Home Medications: Home Medications Medication Instructions Recorded Confirmed Last Taken Type risperiDONE [RisperDAL] 0.5 mg PO BID #60 02/08/22 Unknown Rx traZODone [Desyrel] 50 mg PO QHS #30 tab 02/08/22 Unknown Rx risperiDONE [RisperDAL] 0.5 mg PO BID 30 Days #60 02/15/22 Unknown Rx traZODone [Desyrel] 50 mg PO QHS 30 Days #30 tab 02/15/22 Unknown Rx risperiDONE [RisperDAL] 0.5 mg PO BID 30 Days #60 02/20/22 Unknown Rx traZODone [Desyrel] 50 mg PO QHS 30 Days #30 tab 02/20/22 Unknown Rx risperiDONE [RisperDAL] 1 mg PO BID 30 Days #60 tab 03/05/22 Unknown Rx ED Physical Exam - General Limitations: No Limitations General appearance: alert, in no apparent distress - Head Head exam: Present: atraumatic, normocephalic - Eye Eye exam: Present: normal appearance, PERRL, EOMI Pupils: Present: normal accommodation - ENT ENT exam: Present: normal exam, mucous membranes moist, TM's normal bilaterally - Neck Neck exam: Present: normal inspection, full ROM, lymphadenopathy - Respiratory Respiratory exam: Present: normal lung sounds bilaterally. Absent: respiratory distress, wheezes, rales, accessory muscle use, decreased breath sounds - Cardiovascular Cardiovascular Exam: Present: regular rate, normal rhythm. Absent: systolic murmur, diastolic murmur, rubs, gallop - GI/Abdominal GI/Abdominal exam: Present: soft, normal bowel sounds - Rectal Rectal exam: Present: deferred - Extremities Exam Extremities exam: Present: normal inspection, normal capillary refill - Back Exam Back exam: Present: normal inspection - Neurological Exam Neurological exam: Present: alert, oriented X3, CN II-XII intact, normal gait - Psychiatric Psychiatric exam: Present: normal affect, normal mood - Skin Skin exam: Present: warm, dry, intact, normal color. Absent: rash, diaphoretic, erythema ED Course Vital Signs 03/04/22 03/05/22 03/05/22 16:31 08:06 09:45 Temperature 97.8 F 98.3 F Pulse Rate 77 54 L Respiratory 16 18 Rate Blood Pressure 129/54 127/77 [Right] O2 Sat by Pulse 99 100 99 Oximetry ED Medical Decision Making - Lab Data Result diagrams: 03/04/22 22:06 03/04/22 22:06 Critical care attestation.: If time is entered above; I have spent that time in minutes in the direct care of this critically ill patient, excluding procedure time. ED Disposition Clinical Impression: Schizophrenia, Suicidal ideations Disposition: 01 HOME / SELF CARE / HOMELESS Is pt being admited?: No Does the pt Need Aspirin: No Condition: Stable Additional Instructions: OUTPATIENT MENTAL HEALTH RESOURCES [facility], [facility] Chayo Cam MD: [address] [place] [address] [place] [address] [facility]: [facility] [address] [place] [address] [place] [address] [phone] [facility]: [facility] Healthcare: [address] [facility] [place] [address] [facility] [address] [facility]: Ridge Jay MD: [address] [facility] [address] [facility] [address] [facility]: [address] [facility] [place] [address] [phone] [address] CRISIS AND ACCESS LINE: HOMELESS RESOURCES: [facility] NEED HELP? If you are in need of help or know someone who does, please contact us at [email or web address] call , or come to our offices at [address] [place] [address], Thursday-Thursday beginning 9:30 AM-1:30 PM -Support services help people with getting identification and legal documents -Homeless verification letter -Facesheet (if needed) [facility] Males only Admission at 7am Thu to Thu Address: [address] [place] [address] Client Engagement [phone] Regular program admission occurs Thursday through Thursday at 7:00 amand operates on a first come, first serve basis.Because we cant anticipate program availability in advance andprogram spots are in high demand, we recommend arriving early. Space fills up fast! Next steps can include: Assignment to a [facility] program bed Connection to and placement in a partner program, or Referral to a partner agency [facility] [place] [facility] Admission at 4:30pm daily Address: [place] [address] [facility] Admission from 8am to 10am Daily Address: [address] [place] [id number] Prescriptions: risperiDONE [RisperDAL] 1 mg PO BID 30 Days #60 tab Referrals: PATRICIO ALATORRE MD [Primary Care Provider] - 3-5 Days
[2022-03-04 22:39] LABS: Basophils % (Auto) 0.6 % (0.0-1.8); Eosinophils # (Auto) 0.2 K/mm3 (0.0-0.4); Eosinophils % (Auto) 3.1 % (0.0-4.3); Hematocrit 43.6 % (35.5-45.6); Hemoglobin 14.1 gm/dl (11.8-15.2); Lymphocytes # (Auto) 2.2 K/mm3 (1.2-5.4); Lymphocytes % (Auto) 45.1 % (13.4-35.0); Mean Corpuscular HGB Conc 32 % (32-34); Mean Corpuscular Volume 85 fl (84-94); Monocytes # (Auto) 0.4 K/mm3 (0.0-0.8); Monocytes % (Auto) 8.8 % (0.0-7.3); Platelet Count 210 K/mm3 (140-440); Red Blood Count 5.12 M/mm3 (3.65-5.03); Red Cell Distribution Width 14.9 % (13.2-15.2)
[2022-03-04 22:48] LABS: BUN/Creatinine Ratio 14; Blood Urea Nitrogen 11 mg/dL (9-20); Calcium 9.8 mg/dL (8.4-10.2); Hemolysis Index 15
[2022-03-04 23:14] LABS: Color,Urine Straw (Yellow); WBC,Urine < 1.0 /HPF (0.0-6.0)
[2022-03-04 23:18] LABS: Ictotest,Urine Negative (Negative)
[2022-03-04 23:22] LABS: Amphetamine Screen,Urine PRESUMPTIVE NEGATIVE; Benzodiazepines Screen,Urine PRESUMPTIVE NEGATIVE; Cannabinoid Screen,Urine PRESUMPTIVE NEGATIVE; Cocaine Screen,Urine PRESUMPTIVE NEGATIVE; Methadone Screen,Urine PRESUMPTIVE NEGATIVE; Opiate Screen,Urine PRESUMPTIVE NEGATIVE
[2022-03-05 08:07] VITALS: BP 127/77
--- NOTE | 2022-03-05 09:48 | Emergency Department Report ---
Blank Doc - Documentation Documentation: Verbal report given to me by fast-track nurse, Hannah. She states that the patient was seen and evaluated by overnight fast-track nurse practitioner, and had labs pending. She states that when she went to assess the patient, he reported he was actively suicidal. Therefore patient's care was transferred to me. See patient's electronic health record for nurse practitioners initial documented impression and plan for this specific patient. The patient was physically transferred to the main emergency department. I spoke to the patient independently. He is comfortable and well-appearing. He states "I started feeling suicidal when sitting and waiting for them to tell me if there could not give me my meds. I started thinking about my mom and then I wanted to kill myself." Patient states he does not have a plan and has no auditory or visual hallucinations. No homicidal ideations MDM: Labs reviewed. Pt is medically cleared. 1013 form signed. Patient placed to psychiatric hold in the emergency department. Mental health consultation placed.
--- NOTE | 2022-03-05 16:43 | Consultation ---
History of Present Illness - Reason for Consult Consult date: 03/05/22 Reason for consult: psychosis - History of Present Psychiatric Illness Patient was seen today. Patient reports history of schizophrenia. Patient reports arriving to ED for feeling "suicidal and schizophrenic." Patient reports he's been depressed with intermittent SI for the last year after his mom passed. Patient reports good control of AVH with seroquel and risperidone but reports running out 3 days ago. Patient reports feeling depressed and suicidal without plan. Patient reports previous suicide attempt by jumping in front of a moving vehicle. Patient reports hallucinations of feeling like demons are against him. 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 Patient reports 3 weeks ago l iving at his brother's house, but was kicked out because his brother's ex doesn't like him. At last visit patient was transferred to [facility] in [facility]. Patient reports he was then transferred to a [facility], but the [facility] was closed and full already, so he went to [facility]. Patient requests resources for [facility] in [facility] to stay close to family. REVIEW OF SYSTEMS Constitutional: Negative for weight loss ENT: Negative for stridor Respiratory: Negative for cough or hemoptysis All other systems reviewed and are negative MENTAL STATUS General Appearance and Behavior: age appropriate, poor eye contact Cooperation: Guarded Psychomotor Behavior: within normal limits Mood: depressed, stressed Affect and affective range: Congruent with stated mood Thought Process: goal-oriented Thought Content: reality-based Speech: Normal volume and Regular rate and rhythm Suicidal Ideation: passive SI Homicidal Ideation: Denies Hallucinations: Denies Impulse Control: intact Insight and Judgment: Normal Memory: Normal Attention: attentive Orientation: alert and oriented x3 Assessment Schizophrenia Treatment Plan Print Risperidone 1mg po BID, signed and added to chart Ordered consult for case management for housing; request they ensure availability at [facility] beforehand, [facility] preferably PSYCHOTHERAPY: Supportive psychotherapy provided MEDICAL: Per primary team DELIRIUM PRECAUTIONS: Please re-orient patient frequently, keep lights on during the day, and minimize benzodiazepines and opiates as these medications could worsen patient's confusion. RESIDENT PROGRAM SPECIALIST: Defer to primary DISPOSITION: Do not recommend acute inpatient psychiatric hospitalization at this time. Case management consulted for housing and to provide patient with outpatient psychiatric resources. Will sign off. Thanks Thank you for the consult. Please contact with any questions and/or concerns Case discussed with Dr. Colindres who agrees with current disposition Medications and Allergies Allergies Allergy/AdvReac Type Severity Reaction Status Date / Time aspirin Allergy Shortness Verified 02/25/22 09:46 of Breath Home Medications Medication Instructions Recorded Confirmed Last Taken Type risperiDONE [RisperDAL] 0.5 mg PO BID #60 02/08/22 Unknown Rx traZODone [Desyrel] 50 mg PO QHS #30 tab 02/08/22 Unknown Rx risperiDONE [RisperDAL] 0.5 mg PO BID 30 Days #60 02/15/22 Unknown Rx traZODone [Desyrel] 50 mg PO QHS 30 Days #30 tab 02/15/22 Unknown Rx risperiDONE [RisperDAL] 0.5 mg PO BID 30 Days #60 02/20/22 Unknown Rx traZODone [Desyrel] 50 mg PO QHS 30 Days #30 tab 02/20/22 Unknown Rx risperiDONE [RisperDAL] 1 mg PO BID 30 Days #60 tab 03/05/22 Unknown Rx Mental Status Exam - Vital signs Last Vital Signs Temp 98.3 F 03/05/22 08:06 Pulse 54 L 03/05/22 08:06 Resp 18 03/05/22 08:06 BP 127/77 03/05/22 08:06 Pulse Ox 99 03/05/22 09:45 Results Result Diagrams: 03/04/22 22:06 03/04/22 22:06 Abnormal lab results 03/04/22 03/04/22 03/04/22 Range/Units 22:06 22:06 22:06 RBC 5.12 H (3.65-5.03) M/mm3 Lymph % (Auto) 45.1 H (13.4-35.0) % [place] % (Auto) 8.8 H (0.0-7.3) % Salicylates < 0.3 L (2.8-20.0) mg/dL Acetaminophen 5.0 L (10.0-30.0) ug/mL All other labs normal.
--- NOTE | 2022-03-06 13:05 | Event Note ---
Date: 03/06/22 53-year-old male with extensive psychiatric history held as 1013 for psychiatric evaluation. Per review of patient's electronic health record, patient was deemed cleared for discharge from psychiatric standpoint by psychiatry yesterday, after at the end of this provider shift time. There is no documentation that this information was communicated with the then working emergency department physicians. This patient's chart was reviewed by me today given that the patient was observed to continue to remain in the emergency department with no final disposition. Case management consulted byDominga Marquez. See pt's EHR for case management's impression/plan. Per case management, pt cleared for discharge as the pt has been provided resources by Case management directly. I spoke to the patient independently. He is well appearing. He denies SI/HI, auditory or visual hallucinations . He does not appear to be responding to any internal stimuli. He denies any complaints. Patient is deemed stable for discharge to home.
== END 2022-03-06 11:30 | disposition home or self-care (01) ==
LOC: ED 15:37
DX: R45.851 Suicidal ideations (principal); F20.9 Schizophrenia, unspecified; Z20.822 Contact with and (suspected) exposure to COVID-19; Z88.6 Allergy status to analgesic agent
CPT/HCPCS: 36415; 80048; 80307; 81001; 85025; 99284; U0003; 80320; G0480

== ENCOUNTER 2022-03-07 07:38 | Emergency (ER) | payer MEDICAID ==
[2022-03-07 08:08] VITALS: BP 114/82
--- NOTE | 2022-03-07 13:34 | Emergency Department Report ---
ED Psych HPI - General Chief Complaint: Psych Stated Complaint: SI Time Seen by Provider: 03/07/22 13:20 Source: patient Mode of arrival: Ambulatory - History of Present Illness Initial Comments: 41-year-old -Armenian male with known history of psychosis, multiple visits to the emergency department, returns again today says he is feels like he may hurt himself. Patient has approximately 3 visits of same this week MD Complaint: suicidal ideation -: Gradual, month(s) Associated Psychiatric Symptoms: suicidal ideation Quality: constant, intermittent Improves With: none Worsens With: none Treatments Prior to Arrival: none - Related Data Previous Rx's Medication Instructions Recorded Last Taken Type risperiDONE [RisperDAL] 0.5 mg PO BID #60 02/08/22 Unknown Rx traZODone [Desyrel] 50 mg PO QHS #30 tab 02/08/22 Unknown Rx risperiDONE [RisperDAL] 0.5 mg PO BID 30 Days #60 02/15/22 Unknown Rx traZODone [Desyrel] 50 mg PO QHS 30 Days #30 tab 02/15/22 Unknown Rx risperiDONE [RisperDAL] 0.5 mg PO BID 30 Days #60 02/20/22 Unknown Rx traZODone [Desyrel] 50 mg PO QHS 30 Days #30 tab 02/20/22 Unknown Rx risperiDONE [RisperDAL] 1 mg PO BID 30 Days #60 tab 03/05/22 Unknown Rx Allergies Allergy/AdvReac Type Severity Reaction Status Date / Time aspirin Allergy Shortness Verified 03/07/22 08:08 of Breath ED Review of Systems ROS: Stated complaint: SI Other details as noted in HPI Constitutional: denies: chills, fever Eyes: denies: eye pain, eye discharge, vision change ENT: denies: ear pain, throat pain Respiratory: denies: cough, shortness of breath, wheezing Cardiovascular: as per HPI Gastrointestinal: as per HPI Genitourinary: as per HPI Musculoskeletal: denies: back pain, joint swelling, arthralgia Skin: denies: rash, lesions Neurological: as per HPI Psychiatric: as per HPI, suicidal thoughts Hematological/Lymphatic: denies: easy bleeding, easy bruising ED Past Medical Hx - Past Medical History Previous Medical History?: Yes Hx Psychiatric Treatment: Yes (Schizophrenia (DX AGE 24)) Additional medical history: schizophrenia - Surgical History Additional Surgical History: Right lower extremity repair - Social History Smoking Status: Never Smoker - Medications Home Medications: Home Medications Medication Instructions Recorded Confirmed Last Taken Type risperiDONE [RisperDAL] 0.5 mg PO BID #60 02/08/22 Unknown Rx traZODone [Desyrel] 50 mg PO QHS #30 tab 02/08/22 Unknown Rx risperiDONE [RisperDAL] 0.5 mg PO BID 30 Days #60 02/15/22 Unknown Rx traZODone [Desyrel] 50 mg PO QHS 30 Days #30 tab 02/15/22 Unknown Rx risperiDONE [RisperDAL] 0.5 mg PO BID 30 Days #60 02/20/22 Unknown Rx traZODone [Desyrel] 50 mg PO QHS 30 Days #30 tab 02/20/22 Unknown Rx risperiDONE [RisperDAL] 1 mg PO BID 30 Days #60 tab 03/05/22 Unknown Rx ED Physical Exam - General Limitations: No Limitations General appearance: alert, in no apparent distress - Head Head exam: Present: atraumatic, normocephalic - Eye Eye exam: Present: normal appearance, PERRL, EOMI - ENT ENT exam: Present: normal exam, mucous membranes moist - Neck Neck exam: Present: normal inspection - Respiratory Respiratory exam: Present: normal lung sounds bilaterally. Absent: respiratory distress - Cardiovascular Cardiovascular Exam: Present: regular rate, normal rhythm. Absent: systolic murmur, diastolic murmur, rubs, gallop - GI/Abdominal GI/Abdominal exam: Present: soft, normal bowel sounds - Rectal Rectal exam: Present: deferred - Extremities Exam Extremities exam: Present: normal inspection - Back Exam Back exam: Present: normal inspection - Neurological Exam Neurological exam: Present: alert, oriented X3 - Psychiatric Psychiatric exam: Present: anxious, flat affect - Skin Skin exam: Present: warm, dry, intact, normal color. Absent: rash ED Course Vital Signs 03/07/22 08:06 Temperature 98.6 F Pulse Rate 83 Respiratory 14 Rate Blood Pressure 114/82 O2 Sat by Pulse 100 Oximetry Critical care attestation.: If time is entered above; I have spent that time in minutes in the direct care of this critically ill patient, excluding procedure time. ED Disposition Clinical Impression: Suicidal ideations Disposition: 01 HOME / SELF CARE / HOMELESS Is pt being admited?: No Does the pt Need Aspirin: No Condition: Stable Additional Instructions: HOMELESS RESOURCES: [facility] NEED HELP? If you are in need of help or know someone who does, please contact us at [email or web address] call , or come to our offices at [address] [place] [address], Thursday-Thursday beginning 9:30 AM-1:30 PM -Support services help people with getting identification and legal documents -Homeless verification letter -Facesheet (if needed) [facility] Males only Admission at 7am Thu to Thu Address: [address] [place] [address] Client Engagement [phone] Regular program admission occurs Thursday through Thursday at 7:00 amand operates on a first come, first serve basis.Because we cant anticipate program availability in advance andprogram spots are in high demand, we recommend arriving early. Space fills up fast! Next steps can include: Assignment to a [facility] program bed Connection to and placement in a partner program, or Referral to a partner agency [facility] only Admission at 4:30pm daily Address: [place] [address] [facility] Admission from 8am to 10am Daily Address: [place] [address] Transitional Residential Providers: Shemar Aleman Carlin [phone] Address: [address] [place] [address] Mr. Coffman: Tim Michel [phone] Ms. Nolan: Windy Callahan [phone] Ms. Cherrie Heathaniyah Dumont [facility] [phone] Ms. Son: [facility] [phone] [facility] Home: [facility] [phone] [facility]PAT[facility] RES[facility] Chayo Cam MD: [address] [place] [address] [place] [address] [facility]: [facility] [address] [place] [address] [place] [address] [phone] [facility]: [facility] Healthcare: [address] [facility] [address] [facility] [place] [address] [facility] [address] [facility]: Rideg Jay MD: [address] [facility] [address] [facility] [id number] [facility]: [address] [place] [address] [phone] [place] CRISIS AND ACCESS LINE: Professional and Agency Contacts To help Resolve Crises (05/01) [place] Crisis Line: Suicide Prevention Line: Crisis Text Line: Text START to 351758 Emergency: 911 Outpatient COMMUNITY Behavioral Health Resources: [place]: [facility] [address] [place], [place] [address] [place]: [facility] [address] [place] [address] Thursday thru Thursday - 8am - 5pm Call to schedule an assessment for mental health and substance abuse programs [facility] [place]: [facility] Address: [address] [place], [place] [address]Thursday thru Thursday- 7am-2pm [facility] Address: [address] [place] [address] Thursday thru Thursday: 8:30AM-5PM Referrals: PATRICIO ALATORRE MD [Primary Care Provider] - 3-5 Days
== END 2022-03-07 19:45 | disposition home or self-care (01) ==
LOC: ED 07:38
DX: R45.851 Suicidal ideations (principal); F20.9 Schizophrenia, unspecified; Z91.09 Other allergy status, other than to drugs and biological substances
CPT/HCPCS: 99283

== ENCOUNTER 2022-03-08 12:04 | Emergency (ER) | payer MEDICAID ==
[2022-03-08 14:42] VITALS: BP 128/87
[2022-03-08 15:30] LABS: BUN/Creatinine Ratio 8; Blood Urea Nitrogen 7 mg/dL (9-20); Calcium 9.8 mg/dL (8.4-10.2); Hemolysis Index 12
[2022-03-08 15:31] LABS: Basophils # (Auto) 0.1 K/mm3 (0.0-0.1); Basophils % (Auto) 1.5 % (0.0-1.8); Eosinophils # (Auto) 0.3 K/mm3 (0.0-0.4); Eosinophils % (Auto) 5.1 % (0.0-4.3); Hematocrit 44.6 % (35.5-45.6); Hemoglobin 14.5 gm/dl (11.8-15.2); Lymphocytes # (Auto) 1.7 K/mm3 (1.2-5.4); Lymphocytes % (Auto) 32.7 % (13.4-35.0); Mean Corpuscular HGB Conc 33 % (32-34); Mean Corpuscular Volume 85 fl (84-94); Monocytes # (Auto) 0.5 K/mm3 (0.0-0.8); Monocytes % (Auto) 9.1 % (0.0-7.3); Platelet Count 217 K/mm3 (140-440); Red Blood Count 5.25 M/mm3 (3.65-5.03); Red Cell Distribution Width 14.8 % (13.2-15.2)
== END 2022-03-09 00:23 | disposition left against medical advice (07) ==
LOC: ED 12:04
DX: R45.851 Suicidal ideations (principal); Z53.21 Procedure and treatment not carried out due to patient leaving prior to being seen by health care provider
CPT/HCPCS: 36415; 80048; 80320; 85025; G0480

== ENCOUNTER 2022-03-09 07:19 | Emergency (ER) | payer MEDICAID ==
[2022-03-09 07:48] VITALS: BP 151/94
[2022-03-10 00:31] LABS: Alanine Aminotransferase 16 units/L (7-56); Albumin 4.5 g/dL (3.9-5); BUN/Creatinine Ratio 11; Basophils % (Auto) 0.8 % (0.0-1.8); Blood Urea Nitrogen 9 mg/dL (9-20); Calcium 9.5 mg/dL (8.4-10.2); Eosinophils # (Auto) 0.2 K/mm3 (0.0-0.4); Eosinophils % (Auto) 3.7 % (0.0-4.3); Hemoglobin 13.1 gm/dl (11.8-15.2); Hemolysis Index 5; Lymphocytes # (Auto) 2.4 K/mm3 (1.2-5.4); Lymphocytes % (Auto) 40.2 % (13.4-35.0); Mean Corpuscular HGB Conc 33 % (32-34); Mean Corpuscular Volume 84 fl (84-94); Monocytes # (Auto) 0.7 K/mm3 (0.0-0.8); Monocytes % (Auto) 11.6 % (0.0-7.3); Platelet Count 207 K/mm3 (140-440); Red Blood Count 4.74 M/mm3 (3.65-5.03); Red Cell Distribution Width 14.8 % (13.2-15.2)
--- NOTE | 2022-03-10 05:07 | Emergency Department Report ---
ED Psych HPI - General Chief Complaint: Psych Stated Complaint: SI Time Seen by Provider: 03/09/22 23:28 Source: patient Mode of arrival: Ambulatory - History of Present Illness Initial Comments: Patient is a 41-year-old male presenting to ED with complaint of SI without a plan. Has had multiple visits over the past several days with the same complaint. - Related Data Previous Rx's Medication Instructions Recorded Last Taken Type risperiDONE [RisperDAL] 0.5 mg PO BID #60 02/08/22 Unknown Rx traZODone [Desyrel] 50 mg PO QHS #30 tab 02/08/22 Unknown Rx risperiDONE [RisperDAL] 0.5 mg PO BID 30 Days #60 02/15/22 Unknown Rx traZODone [Desyrel] 50 mg PO QHS 30 Days #30 tab 02/15/22 Unknown Rx risperiDONE [RisperDAL] 0.5 mg PO BID 30 Days #60 02/20/22 Unknown Rx traZODone [Desyrel] 50 mg PO QHS 30 Days #30 tab 02/20/22 Unknown Rx risperiDONE [RisperDAL] 1 mg PO BID 30 Days #60 tab 03/05/22 Unknown Rx Allergies Allergy/AdvReac Type Severity Reaction Status Date / Time aspirin Allergy Shortness Verified 03/07/22 08:08 of Breath ED Review of Systems ROS: Stated complaint: SI Other details as noted in HPI Constitutional: denies: chills, fever Respiratory: denies: cough, shortness of breath, wheezing Cardiovascular: denies: chest pain, palpitations Gastrointestinal: denies: abdominal pain, nausea, diarrhea Genitourinary: denies: urgency, dysuria Musculoskeletal: denies: back pain, joint swelling, arthralgia Skin: as per HPI Neurological: denies: headache, weakness, paresthesias Psychiatric: suicidal thoughts ED Past Medical Hx - Past Medical History Previous Medical History?: Yes Hx Psychiatric Treatment: Yes (Schizophrenia (DX AGE 24)) Additional medical history: schizophrenia - Surgical History Past Surgical History?: Yes Additional Surgical History: Right lower extremity repair - Social History Smoking Status: Never Smoker - Medications Home Medications: Home Medications Medication Instructions Recorded Confirmed Last Taken Type risperiDONE [RisperDAL] 0.5 mg PO BID #60 02/08/22 Unknown Rx traZODone [Desyrel] 50 mg PO QHS #30 tab 02/08/22 Unknown Rx risperiDONE [RisperDAL] 0.5 mg PO BID 30 Days #60 02/15/22 Unknown Rx traZODone [Desyrel] 50 mg PO QHS 30 Days #30 tab 02/15/22 Unknown Rx risperiDONE [RisperDAL] 0.5 mg PO BID 30 Days #60 02/20/22 Unknown Rx traZODone [Desyrel] 50 mg PO QHS 30 Days #30 tab 02/20/22 Unknown Rx risperiDONE [RisperDAL] 1 mg PO BID 30 Days #60 tab 03/05/22 Unknown Rx ED Physical Exam - General Limitations: Other General appearance: alert, in no apparent distress - Head Head exam: Present: atraumatic, normocephalic - Respiratory Respiratory exam: Present: normal lung sounds bilaterally. Absent: respiratory distress - Cardiovascular Cardiovascular Exam: Present: regular rate, normal rhythm, normal heart sounds - GI/Abdominal GI/Abdominal exam: Present: soft. Absent: distended, tenderness - Rectal Rectal exam: Present: deferred - Neurological Exam Neurological exam: Present: alert, oriented X3 - Psychiatric Psychiatric exam: Present: normal affect, normal mood - Skin Skin exam: Present: warm, dry, intact, normal color ED Course Vital Signs 03/09/22 03/09/22 07:47 23:37 Temperature 98.4 F Pulse Rate 62 Respiratory 20 Rate Blood Pressure 151/94 [Right] O2 Sat by Pulse 100 96 Oximetry ED Medical Decision Making - Lab Data Result diagrams: 03/09/22 23:44 03/09/22 23:44 - Medical Decision Making Labs unremarkable. Patient has multiple recent visits for same complaint with concern for malingering behavior. Patient does not appear to be actively suicidal. Will discharge. Critical care attestation.: If time is entered above; I have spent that time in minutes in the direct care of this critically ill patient, excluding procedure time. ED Disposition Clinical Impression: Suicidal ideations Disposition: 01 HOME / SELF CARE / HOMELESS Is pt being admited?: No Condition: Stable Instructions: Suicidal Feelings: How to Help Yourself Time of Disposition: 05:09
== END 2022-03-10 06:05 | disposition home or self-care (01) ==
LOC: ED 07:19
DX: R45.851 Suicidal ideations (principal); F20.9 Schizophrenia, unspecified; Z91.09 Other allergy status, other than to drugs and biological substances
CPT/HCPCS: 36415; 80053; 80320; 84443; 85025; 99283; 99284; G0480

== ENCOUNTER 2022-03-10 18:22 | Emergency (ER) | payer MEDICAID ==
[2022-03-10 20:51] VITALS: BP 138/90
--- NOTE | 2022-03-11 04:13 | Emergency Department Report ---
ED General Adult HPI - General Chief complaint: Recheck/Abnormal Lab/Rx Stated complaint: MED REFILL Time Seen by Provider: 03/11/22 01:53 Source: patient Mode of arrival: Ambulatory Limitations: No Limitations - History of Present Illness Initial comments: 41-year-old male well-known to the emergency department with a well-known mental health history presents to the emergency department seeking a refill of his Risperdal and Seroquel [place] for place to sleep personal fever, chills, sweats. No nausea, no vomiting -: Gradual Radiation: non-radiation Quality: sharp Consistency: constant Improves with: none Worsens with: none - Related Data Previous Rx's Medication Instructions Recorded Last Taken Type risperiDONE [RisperDAL] 0.5 mg PO BID #60 02/08/22 Unknown Rx traZODone [Desyrel] 50 mg PO QHS #30 tab 02/08/22 Unknown Rx risperiDONE [RisperDAL] 0.5 mg PO BID 30 Days #60 02/15/22 Unknown Rx traZODone [Desyrel] 50 mg PO QHS 30 Days #30 tab 02/15/22 Unknown Rx risperiDONE [RisperDAL] 0.5 mg PO BID 30 Days #60 02/20/22 Unknown Rx traZODone [Desyrel] 50 mg PO QHS 30 Days #30 tab 02/20/22 Unknown Rx risperiDONE [RisperDAL] 1 mg PO BID 30 Days #60 tab 03/05/22 Unknown Rx Allergies Allergy/AdvReac Type Severity Reaction Status Date / Time aspirin Allergy Shortness Verified 03/07/22 08:08 of Breath ED Review of Systems ROS: Stated complaint: MED REFILL Other details as noted in HPI Comment: All other systems reviewed and negative ED Past Medical Hx - Past Medical History Previous Medical History?: Yes Hx Psychiatric Treatment: Yes (Schizophrenia (DX AGE 24)) Additional medical history: schizophrenia - Surgical History Past Surgical History?: Yes Additional Surgical History: Right lower extremity repair - Social History Smoking Status: Unknown if ever smoked - Medications Home Medications: Home Medications Medication Instructions Recorded Confirmed Last Taken Type risperiDONE [RisperDAL] 0.5 mg PO BID #60 02/08/22 Unknown Rx traZODone [Desyrel] 50 mg PO QHS #30 tab 02/08/22 Unknown Rx risperiDONE [RisperDAL] 0.5 mg PO BID 30 Days #60 02/15/22 Unknown Rx traZODone [Desyrel] 50 mg PO QHS 30 Days #30 tab 02/15/22 Unknown Rx risperiDONE [RisperDAL] 0.5 mg PO BID 30 Days #60 02/20/22 Unknown Rx traZODone [Desyrel] 50 mg PO QHS 30 Days #30 tab 02/20/22 Unknown Rx risperiDONE [RisperDAL] 1 mg PO BID 30 Days #60 tab 03/05/22 Unknown Rx ED Physical Exam - General Limitations: No Limitations General appearance: alert, in no apparent distress, other (Sleeping no acute distress) - Head Head exam: Present: atraumatic, normocephalic - Eye Eye exam: Present: normal appearance, PERRL, EOMI Pupils: Present: normal accommodation - ENT ENT exam: Present: mucous membranes moist - Neck Neck exam: Present: normal inspection - Respiratory Respiratory exam: Present: normal lung sounds bilaterally. Absent: respiratory distress - Cardiovascular Cardiovascular Exam: Present: regular rate, normal rhythm. Absent: systolic murmur, diastolic murmur, rubs, gallop - GI/Abdominal GI/Abdominal exam: Present: soft, normal bowel sounds - Rectal Rectal exam: Present: deferred - Extremities Exam Extremities exam: Present: normal inspection - Back Exam Back exam: Present: normal inspection - Neurological Exam Neurological exam: Present: alert, oriented X3, CN II-XII intact, normal gait - Psychiatric Psychiatric exam: Present: normal affect, normal mood. Absent: manic, homicidal ideation, suicidal ideation - Skin Skin exam: Present: warm, dry, intact, normal color. Absent: rash ED Course Vital Signs 03/10/22 20:50 Temperature 98.0 F Pulse Rate 63 Respiratory 18 Rate Blood Pressure 138/90 O2 Sat by Pulse 99 Oximetry Critical care attestation.: If time is entered above; I have spent that time in minutes in the direct care of this critically ill patient, excluding procedure time. ED Disposition Clinical Impression: Medical non-compliance, Encounter for medication refill Is pt being admited?: No Does the pt Need Aspirin: No Condition: Stable Additional Instructions: Please be sure to follow-up with the listed provider for reevaluation of your m ental health condition and to be restarted on any medications. Referrals: PATRICIO ALATORRE MD [Primary Care Provider] - 3-5 Days
== END 2022-03-11 04:30 | disposition home or self-care (01) ==
LOC: ED 18:22
DX: F20.9 Schizophrenia, unspecified (principal); Z76.0 Encounter for issue of repeat prescription; Z91.14 Patient's other noncompliance with medication regimen
CPT/HCPCS: 99282